=== PATIENT | female | born 2000 | race Caucasian/White ===

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

== ENCOUNTER 2020-10-16 19:17 | Inpatient (IN) ==
[2020-10-16] MEDS ORDERED: SODIUM CHLORIDE 0.9% 1000ML 1,000 ML IV STA (19:46)
[2020-10-16] MEDS ORDERED: ACETAMINOPHEN 1000 MG/100 ML IV IV STA (19:46)
--- NOTE | 2020-10-16 19:57 | Emergency Department Note ---
History of Present Illness General Chief complaint: Fever Stated complaint: FEVER Time Seen by Provider: 10/16/20 19:37 Source: patient Mode of arrival: ambulatory Limitations: no limitations History of Present Illness Provider complaint: fever This 19-year-old female patient presents to the emergency department today via private vehicle for evaluation of fever and chills for the past 2 weeks. Patient does report a history of urinary reflux as a child and states she was on antibiotics for 12 years, but has not had any problems in approximately the past 8 years. The patient states she developed a dark-colored urine yesterday. Patient states T-max has been 102.8F. The patient reports a normal menstrual period last week. She states before the fevers began, she had 2-day history of sore throat and has been experiencing intermittent coughing. She states she has not had Covid testing since the onset of her symptoms. She did receive her second COVID-19 vaccine 2 weeks ago. She reports some mild low back pain. No abdominal pain, nausea, vomiting. She is eating and drinking without difficulty. She states she normally has a bowel movement about 10 times per day, but over the past 2 weeks has not been moving her bowels as frequently. Patient does admit to alcohol and marijuana use "like a normal college student". She denies any chest pain or dyspnea. No hemoptysis. Home Medications Medication Instructions Recorded Confirmed Type acetaminophen [Tylenol] 650 mg PO QID PRN 10/16/20 10/16/20 History ascorbic acid (vitamin C) [Vitamin 500 mg PO QAM 10/16/20 10/16/20 History C] lactobacillus combination no.4 3,000 mmu cells PO QAM 10/16/20 10/16/20 History [Probiotic] Allergies Allergy/AdvReac Type Severity Reaction Status Date / Time No Known Allergies Allergy Unverified 10/16/20 20:05 Past Med/Surg History Medical History Ureteral reflux Social History Smoking Status: Never smoker Tobacco Type: Cigarettes Feels Safe at Home: Yes Review of Systems A total of 10 systems reviewed and were otherwise negative Physical Exam Vital Signs Vital Signs - 24 hr 10/16/20 19:26 10/16/20 19:39 10/16/20 21:08 Temperature 36.9 C 37.9 C H 38.1 C H Temperature Source Skin Oral Oral Pulse Rate 110 H Pulse Rate [Apical] 94 H 82 Respiratory Rate 18 19 20 Blood Pressure 135/86 Blood Pressure [Right Arm] 139/73 133/66 Blood Pressure Mean 102 Blood Pressure Mean [Right Arm] 95 88 Blood Pressure Position Sitting Blood Pressure Position [Right Arm] Lying Pulse Oximetry 97 98 94 Oxygen Delivery Method Room Air Room Air Room Air Sepsis Recent Fever Within 48 Hours No Sepsis New/Unexplained Change in Mental Status N/A Sepsis Action Taken by Nursing No Action Required 10/16/20 22:07 Temperature Temperature Source Pulse Rate Pulse Rate [Apical] 86 Respiratory Rate 20 Blood Pressure Blood Pressure [Right Arm] 133/77 Blood Pressure Mean Blood Pressure Mean [Right Arm] 95 Blood Pressure Position Blood Pressure Position [Right Arm] Pulse Oximetry 98 Oxygen Delivery Method Room Air Sepsis Recent Fever Within 48 Hours Sepsis New/Unexplained Change in Mental Status Sepsis Action Taken by Nursing VITALS: Vitals are noted on the nurse's note and reviewed by myself. Vital signs stable. GENERAL: This is a 19-year-old white female, in no acute distress, nondiaphoretic, well-developed well-nourished. SKIN: The skin was without rashes, erythema, edema, or bruising. There is no tenting of the skin. Capillary refill less than 2 seconds. HEAD: Normocephalic atraumatic. EYES: Conjunctivae without injection, sclerae without icterus. NECK: Supple without nuchal rigidity. No lymphadenopathy. No JVD. HEART: Regular rate and rhythm without murmurs gallops or rubs. LUNGS: Clear to auscultation bilaterally without wheezes, rales or rhonchi. No retractions or accessory muscle use. ABDOMEN: Positive bowel sounds x 4. Soft, nontender, without masses or organomegaly. Garcia sign negative. No guarding or rebound tenderness. TRACKLESS TROLLEY DRIVER - (An RN nurse ocean export coordinator was present throughout the entire TRACKLESS TROLLEY DRIVER procedure.) SPECULUM EXAM: - Water-soluble lubricant was applied to the plastic speculum and inserted into the vagina in a downward fashion towards the location of the cervix. When resistance was met, the speculum was opened to visualize the cervix. The cervical os was closed and without active drainage. No lesions, masses, or purulent discharge noted. A swab of the cervix was taken for a vaginal culture and sensitivity. Gonoccal(GC)/Chlamydia endocervical sample was obtained. All samples were sealed, labeled, and sent away for pathology. The speculum was slowly removed to visualize the vaginal blanchard. No lesions, masses, or excoriations noted. Pt tolerated the procedure well and voiced no discomfort throughout the procedure. BIMANUAL EXAM: - MONS - Tom Stage V. No lesions or growths noted. No palpable inguinal lymph nodes. - VULVA - skin color consistent with surrounding structures. No signs of irritation, edema, lesions, growths, or discharge. No vulvar or clitoral adhes ions. No tenderness to palpation. - PERINEUM -no growths or lesions. Skin intact without breakdown or scars. - BARTHOLIN'S GLANDS/SKENE'S GLANDS - No enlargement or discharge noted. No tenderness with palpation. - URETHRA - No erythema, edema, discharge, or blood noted. - VAGINA - [place] and moist without lesions, vesicles, discharge, or growths noted. - CERVIX - No cervical motion tenderness appreciated. - UTERUS - Palpable and nontender. - ADNEXA - No masses or tenderness noted with palpation. - RECTO-VAGINAL - No fissures, masses, or hemorrhoids visualized on minimal exam. MUSCULOSKELETAL: No muscle atrophy, erythema, or edema noted. Full range of motion without joint tenderness in all extremities. No tenderness to palpation. Normal gait. Strength 5/5 throughout. NEURO: Patient was alert and oriented to person place and time. No focal neurological deficits. Course Course The patient was seen and evaluated as above. An order was placed for continuous cardiac monitoring. The monitor shows a normal sinus rhythm at a rate of 103 bpm initially. IV access obtained, labs drawn. Patient medicated with IV fluids and acetaminophen. X-ray imaging performed and reviewed by myself and radiologist as noted. Labs reviewed by myself. I discussed the findings with the patient at bedside. I discussed the case with the team manager. I discussed the case with Dr. Stiles, [facility] hospitalist physician. He did agree to see and evaluate the patient for inpatient work-up. Pelvic examination completed. Please see hospitalist dictation regarding ongoing management care of this patient. Administered Medications Discontinued Medications Acetaminophen (Acetaminophen 1000 Mg/100 Ml Iv) 1,000 mg IV NOW STA Stop: 10/16/20 19:47 Last Admin: 10/16/20 20:03 Dose: 1,000 mg Documented by: [id number] Sodium Chloride (Nss 1000ml) 1,000 mls @ 999 mls/hr IV .[id number] STA Stop: 10/16/20 20:46 Last Infusion: 10/16/20 20:59 Dose: 0 mls/hr Documented by: [id number] Admin: 10/16/20 20:03 Dose: 999 mls/hr Documented by: [id number] Ceftriaxone Sodium (Rocephin) 1,000 mg in 50 mls @ 100 mls/hr IV NOW STA Stop: 10/16/20 21:12 Last Infusion: 10/16/20 21:23 Dose: 0 mls/hr Documented by: [id number] Admin: 10/16/20 20:48 Dose: 100 mls/hr Documented by: [id number] Ceftriaxone Sodium (Rocephin) 1,000 mg in 50 mls @ 100 mls/hr IV NOW STA Stop: 10/16/20 22:52 Last Admin: 10/16/20 22:50 Dose: 100 mls/hr Documented by: [id number] Medical Decision Making Differential Diagnosis Viral syndrome, otitis, pharyngitis, pneumonia, influenza, meningitis, urinary tract infection, sepsis, bacteremia, as well as other pathologies. Medical Records Attestation: I reviewed the patient's medical records. Home Medications Current Medication List: was personally reviewed by me Laboratory Data Attestation: I reviewed the patient's lab results. Mild leukopenia with a white blood cell count of 3.81. No thrombocytopenia or anemia. Renal function electrolytes without significant abnormality. Transaminases significantly elevated with an AST of 751 and ALT of 660. Alkaline phosphatase 192. Lipase 114. Troponin elevated at 0.143. Procalcitonin 0.34. Urinalysis concerning for infection with positive nitrites. Urine test negative. COVID-19, influenza, RSV testing negative. Lyme disease testing negative. Lactic acid 1.2. [place] screen negative. Result diagrams: 10/16/20 20:08 10/16/20 20:08 Lab Results 10/16/20 10/16/20 10/16/20 Range/Units 19:42 19:42 19:52 WBC (4.8-10.8) K/uL RBC (4.2-5.4) M/uL Hgb (12.0-16.0) g/dL Hct (37-47) % MCV (80-100) fL MCH (25-34) pg MCHC (32-36) g/dL RDW Std Deviation (36.4-46.3) fL RDW Coeff of Virid[place] (11.5-14.5) % Plt Count (130-400) K/uL MPV (7.4-10.4) fL Immature Gran % (Auto) % Neut % (Auto) % Lymph % (Auto) % [place] % (Auto) % Eos % (Auto) % Baso % (Auto) % Neut # (Auto) (1.4-6.5) K/uL Lymph # (Auto) (1.2-3.4) K/uL [place] # (Auto) (0.11-0.59) K/uL Eos # (Auto) (0-0.5) K/uL Baso # (Auto) (0-0.2) K/uL Immature Gran # (Auto) (0.00-0.02) K/uL PT (9.0-12.0) Seconds INR (0.9-1.1) Sodium (136-145) mmol/L Potassium (3.5-5.1) mmol/L Chloride (98-107) mmol/L Carbon Dioxide (21-32) mmol/L Anion Gap (3-11) BUN (7-18) mg/dl Creatinine (0.6-1.2) mg/dl Est Cr Clr Drug Dosing ml/min Est GFR ( Amer) Est GFR (Non-Af Amer) BUN/Creatinine Ratio (10-20) Glucose (70-99) mg/dl Lactate (0.4-2.0) mmol/L Calcium (8.5-10.1) mg/dl Total Bilirubin (0.2-1) mg/dl AST (15-37) U/L ALT (12-78) U/L Alkaline Phosphatase (45-117) U/L Troponin I (0-0.045) ng/ml Total Protein (6.4-8.2) gm/dl Albumin (3.4-5.0) gm/dl Globulin (2.5-4.0) gm/dl Albumin/Globulin Ratio (0.9-2) Lipase (73-393) U/L Procalcitonin (0-0.5) ng/ml Urine Color Dark Yellow Urine Appearance Cloudy A (Clear) Urine pH 6.5 (4.5-7.5) Ur Specific Margaret 1.033 H (1.000-1.030) Urine Protein Trace H (Negative) Urine Glucose (UA) Negative (Negative) Urine Ketones Trace H (Negative) Urine Blood Trace H (Negative) Urine Nitrite Positive A (Negative) Urine Bilirubin 2+ H (Negative) Urine Urobilinogen Negative (Negative) Ur Leukocyte Esterase 1+ H (Negative) Urine WBC (Auto) 5-10 H (0-5) /hpf Urine RBC (Auto) 0-4 (0-4) /hpf U Hyaline Cast (Auto) 0 (0-5) /lpf U Epithel Cells (Auto) >30 H (0-5) /lpf Urine Bacteria (Auto) 2+ H (Negative) Urine Mucus Present A (None Prsent) Urine Yeast Not Reportable Urine Test Negative (Negative) Lyme Disease IgG Ab (Negative) Lyme Disease IgM Ab (Negative) COVID-19 Eval Order CovFluRsv at [facility] SARS-CoV-2 (PCR) (Negative) Monoscreen (Negative) Influenza Type A (PCR) (Neg) Influenza Type B (PCR) (Neg) RSV (RT-PCR) (Neg) 10/16/20 10/16/20 10/16/20 Range/Units 19:52 20:08 20:08 WBC 3.81 L (4.8-10.8) K/uL RBC 4.00 L (4.2-5.4) M/uL Hgb 12.4 (12.0-16.0) g/dL Hct 36.8 L (37-47) % MCV 92.0 (80-100) fL MCH 31.0 (25-34) pg MCHC 33.7 (32-36) g/dL RDW Std Deviation 45.5 (36.4-46.3) fL RDW Coeff of Virid[place] 13.5 (11.5-14.5) % Plt Count 231 (130-400) K/uL MPV 10.0 (7.4-10.4) fL Immature Gran % (Auto) 0.3 % Neut % (Auto) 47.2 % Lymph % (Auto) 39.9 % [place] % (Auto) 9.2 % Eos % (Auto) 0.3 % Baso % (Auto) 3.1 % Neut # (Auto) 1.80 (1.4-6.5) K/uL Lymph # (Auto) 1.52 (1.2-3.4) K/uL [place] # (Auto) 0.35 (0.11-0.59) K/uL Eos # (Auto) 0.01 (0-0.5) K/uL Baso # (Auto) 0.12 (0-0.2) K/uL Immature Gran # (Auto) 0.01 (0.00-0.02) K/uL PT 11.4 (9.0-12.0) Seconds INR 1.1 (0.9-1.1) Sodium (136-145) mmol/L Potassium (3.5-5.1) mmol/L Chloride (98-107) mmol/L Carbon Dioxide (21-32) mmol/L Anion Gap (3-11) BUN (7-18) mg/dl Creatinine (0.6-1.2) mg/dl Est Cr Clr Drug Dosing ml/min Est GFR ( Amer) Est GFR (Non-Af Amer) BUN/Creatinine Ratio (10-20) Glucose (70-99) mg/dl Lactate (0.4-2.0) mmol/L Calcium (8.5-10.1) mg/dl Total Bilirubin (0.2-1) mg/dl AST (15-37) U/L ALT (12-78) U/L Alkaline Phosphatase (45-117) U/L Troponin I (0-0.045) ng/ml Total Protein (6.4-8.2) gm/dl Albumin (3.4-5.0) gm/dl Globulin (2.5-4.0) gm/dl Albumin/Globulin Ratio (0.9-2) Lipase (73-393) U/L Procalcitonin (0-0.5) ng/ml Urine Color Urine Appearance (Clear) Urine pH (4.5-7.5) Ur Specific Margaret (1.000-1.030) Urine Protein (Negative) Urine Glucose (UA) (Negative) Urine Ketones (Negative) Urine Blood (Negative) Urine Nitrite (Negative) Urine Bilirubin (Negative) Urine Urobilinogen (Negative) Ur Leukocyte Esterase (Negative) Urine WBC (Auto) (0-5) /hpf Urine RBC (Auto) (0-4) /hpf U Hyaline Cast (Auto) (0-5) /lpf U Epithel Cells (Auto) (0-5) /lpf Urine Bacteria (Auto) (Negative) Urine Mucus (None Prsent) Urine Yeast Urine Test (Negative) Lyme Disease IgG Ab (Negative) Lyme Disease IgM Ab (Negative) COVID-19 Eval Order SARS-CoV-2 (PCR) NEGATIVE (Negative) Monoscreen (Negative) Influenza Type A (PCR) Negative (Neg) Influenza Type B (PCR) Negative (Neg) RSV (RT-PCR) Negative (Neg) 10/16/20 10/16/20 10/16/20 Range/Units 20:08 20:08 20:08 WBC (4.8-10.8) K/uL RBC (4.2-5.4) M/uL Hgb (12.0-16.0) g/dL Hct (37-47) % MCV (80-100) fL MCH (25-34) pg MCHC (32-36) g/dL RDW Std Deviation (36.4-46.3) fL RDW Coeff of Viridiana (11.5-14.5) % Plt Count (130-400) K/uL MPV (7.4-10.4) fL Immature Gran % (Auto) % Neut % (Auto) % Lymph % (Auto) % [place] % (Auto) % Eos % (Auto) % Baso % (Auto) % Neut # (Auto) (1.4-6.5) K/uL Lymph # (Auto) (1.2-3.4) K/uL [place] # (Auto) (0.11-0.59) K/uL Eos # (Auto) (0-0.5) K/uL Baso # (Auto) (0-0.2) K/uL Immature Gran # (Auto) (0.00-0.02) K/uL PT (9.0-12.0) Seconds INR (0.9-1.1) Sodium 137 (136-145) mmol/L Potassium 3.7 (3.5-5.1) mmol/L Chloride 102 (98-107) mmol/L Carbon Dioxide 28 (21-32) mmol/L Anion Gap 7.0 (3-11) BUN 6 L (7-18) mg/dl Creatinine 0.73 (0.6-1.2) mg/dl Est Cr Clr Drug Dosing 134.3 ml/min Est GFR ( Amer) 136.5 Est GFR (Non-Af Amer) 117.7 BUN/Creatinine Ratio 7.9 L (10-20) Glucose 96 (70-99) mg/dl Lactate 1.2 (0.4-2.0) mmol/L Calcium 9.3 (8.5-10.1) mg/dl Total Bilirubin 1.4 H (0.2-1) mg/dl AST 751 H (15-37) U/L ALT 660 H (12-78) U/L Alkaline Phosphatase 192 H (45-117) U/L Troponin I 0.143 H* (0-0.045) ng/ml Total Protein 7.9 (6.4-8.2) gm/dl Albumin 3.8 (3.4-5.0) gm/dl Globulin 4.1 H (2.5-4.0) gm/dl Albumin/Globulin Ratio 0.9 (0.9-2) Lipase 114 (73-393) U/L Procalcitonin 0.34 (0-0.5) ng/ml Urine Color Urine Appearance (Clear) Urine pH (4.5-7.5) Ur Specific Margaret (1.000-1.030) Urine Protein (Negative) Urine Glucose (UA) (Negative) Urine Ketones (Negative) Urine Blood (Negative) Urine Nitrite (Negative) Urine Bilirubin (Negative) Urine Urobilinogen (Negative) Ur Leukocyte Esterase (Negative) Urine WBC (Auto) (0-5) /hpf Urine RBC (Auto) (0-4) /hpf U Hyaline Cast (Auto) (0-5) /lpf U Epithel Cells (Auto) (0-5) /lpf Urine Bacteria (Auto) (Negative) Urine Mucus (None Prsent) Urine Yeast Urine Test (Negative) Lyme Disease IgG Ab Negative (Negative) Lyme Disease IgM Ab Negative (Negative) COVID-19 Eval Order SARS-CoV-2 (PCR) (Negative) Monoscreen (Negative) Influenza Type A (PCR) (Neg) Influenza Type B (PCR) (Neg) RSV (RT-PCR) (Neg) 10/16/20 Range/Units 20:08 WBC (4.8-10.8) K/uL RBC (4.2-5.4) M/uL Hgb (12.0-16.0) g/dL Hct (37-47) % MCV (80-100) fL MCH (25-34) pg MCHC (32-36) g/dL RDW Std Deviation (36.4-46.3) fL RDW Coeff of Virid[place] (11.5-14.5) % Plt Count (130-400) K/uL MPV (7.4-10.4) fL Immature Gran % (Auto) % Neut % (Auto) % Lymph % (Auto) % [place] % (Auto) % Eos % (Auto) % Baso % (Auto) % Neut # (Auto) (1.4-6.5) K/uL Lymph # (Auto) (1.2-3.4) K/uL [place] # (Auto) (0.11-0.59) K/uL Eos # (Auto) (0-0.5) K/uL Baso # (Auto) (0-0.2) K/uL Immature Gran # (Auto) (0.00-0.02) K/uL PT (9.0-12.0) Seconds INR (0.9-1.1) Sodium (136-145) mmol/L Potassium (3.5-5.1) mmol/L Chloride (98-107) mmol/L Carbon Dioxide (21-32) mmol/L Anion Gap (3-11) BUN (7-18) mg/dl Creatinine (0.6-1.2) mg/dl Est Cr Clr Drug Dosing ml/min Est GFR ( Amer) Est GFR (Non-Af Amer) BUN/Creatinine Ratio (10-20) Glucose (70-99) mg/dl Lactate (0.4-2.0) mmol/L Calcium (8.5-10.1) mg/dl Total Bilirubin (0.2-1) mg/dl AST (15-37) U/L ALT (12-78) U/L Alkaline Phosphatase (45-117) U/L Troponin I (0-0.045) ng/ml Total Protein (6.4-8.2) gm/dl Albumin (3.4-5.0) gm/dl Globulin (2.5-4.0) gm/dl Albumin/Globulin Ratio (0.9-2) Lipase (73-393) U/L Procalcitonin (0-0.5) ng/ml Urine Color Urine Appearance (Clear) Urine pH (4.5-7.5) Ur Specific Margaret (1.000-1.030) Urine Protein (Negative) Urine Glucose (UA) (Negative) Urine Ketones (Negative) Urine Blood (Negative) Urine Nitrite (Negative) Urine Bilirubin (Negative) Urine Urobilinogen (Negative) Ur Leukocyte Esterase (Negative) Urine WBC (Auto) (0-5) /hpf Urine RBC (Auto) (0-4) /hpf U Hyaline Cast (Auto) (0-5) /lpf U Epithel Cells (Auto) (0-5) /lpf Urine Bacteria (Auto) (Negative) Urine Mucus (None Prsent) Urine Yeast Urine Test (Negative) Lyme Disease IgG Ab (Negative) Lyme Disease IgM Ab (Negative) COVID-19 Eval Order SARS-CoV-2 (PCR) (Negative) Monoscreen Negative (Negative) Influenza Type A (PCR) (Neg) Influenza Type B (PCR) (Neg) RSV (RT-PCR) (Neg) Imaging Data Radiologist's Impression: Chest X-Ray 10/16/20 19:46 XR chest 1V portable CLINICAL HISTORY: Fever COMPARISON STUDY: Chest radiograph March 09, 2017. FINDINGS: Lung volumes are normal. Lungs are clear. There is no pneumothorax or pleural effusion. Cardiac size is normal. Mediastinal contours are normal. There is no evidence for pulmonary edema. IMPRESSION: No acute cardiopulmonary findings. ACT 112: Negative or not required by law. Electronically signed by: Lencho Pan M.D. 10/16/2020 8:45 PM ECG Data Attestation: I personally reviewed and interpreted this ECG as follows: Indication: + other (elevated troponin, fever) Rate (beats per minute): 83 Rhythm: + normal sinus ECG [place]: + Normal ECG ST segments: no ST depression, no ST elevation and no T-wave inversions Comparison ECG Date: no prior available MDM Narrative This 19-year-old female patient presents to the emergency department today for evaluation of fever. This is been ongoing intermittently for approximately 2 weeks. Patient states her fever may improve for approximately 6 hours, but it worsens. She has been taking acetaminophen for the fevers. Patient states yesterday she noted her urine to be discolored. In addition to the fevers, the patient has been experiencing intermittent coughing. She did also recently receive her second COVID-19 vaccine. Patient is tolerating p.o. food and fluids. Initial concern was for fever. No pain. Patient was concerned for possible retained condom, but pelvic examination without evidence of retained foreign body. Cultures were obtained. Patient was found to have elevated transaminases as well as an elevated troponin. Work-up here concerning for myocarditis. Unclear etiology, as mono screen negative. There does appear to be a mild leukopenia with a white blood cell count of 3.8. No thrombocytopenia. Patient has not had any chest pain or dyspnea. Chest x-ray negative for pneumonia. COVID-19 testing negative. Patient will be admitted to the [facility] hospitalist service for further evaluation. Please see hospitalist dictation regarding ongoing management care of this patient. The chart was completed utilizing [employer] Speech voice recognition software. Grammatical errors, random word insertions, pronoun errors, and incomplete sentences are an occasional consequence of this system due to software limita tions, ambient noise, and hardware issues. Any formal questions or concerns about the content, text, or information contained within the body of this dictation should be directly addressed to the provider for clarification. Impression & Plan Fever, Myocarditis, Urinary tract infection Discharge Plan Visit Data Chief Complaint: Fever Stated Complaint: FEVER ED Provider: Lucio Lorenzo ED Midlevel Provider: Angella Jane Discharge Problem: Fever, Myocarditis, Urinary tract infection Patient Disposition: Admitted As Inpatient Forms Stand Alone Forms: [facility] Prescriptions Prescriptions: No Action acetaminophen [Tylenol] 325 mg Tablet 650 mg PO QID PRN (Reason: Pain) RF: 0 ascorbic acid (vitamin C) [Vitamin C] 500 mg Tablet 500 mg PO QAM RF: 0 Probiotic 3 billion cell Capsule 3,000 mmu cells PO QAM RF: 0 Referrals Referrals: PCP,NO [Primary Care Provider] -
[2020-10-16 20:25] LABS: Hematocrit (blood only) 36.8 % (37-47); Hemoglobin 12.4 g/dL (12.0-16.0); Mean Corpuscular Hgb Conc 33.7 g/dL (32-36); Platelet Count 231 K/uL (130-400); RDW Coefficient of Variation 13.5 % (11.5-14.5); RDW Standard Deviation 45.5 fL (36.4-46.3); White Blood Count 3.81 K/uL (4.8-10.8)
[2020-10-16 20:28] LABS: Appearance Urine Cloudy (Clear); Bacteria Urine Automated 2+ (Negative); Blood Urine Trace (Negative); Color Urine Dark Yellow; Epithelial Cell Urine Auto >30 /lpf (0-5); Glucose Urine UA Negative (Negative); Ketones Urine Trace (Negative); Leukocyte Esterase Urine 1+ (Negative); Nitrite Urine Positive (Negative); Protein Urine Trace (Negative); Specific Gravity Urine 1.033 (1.000-1.030); Urobilinogen Urine Negative (Negative); pH Urine 6.5 (4.5-7.5)
[2020-10-16 20:31] LABS: Pregnancy Test, Urine Negative (Negative)
[2020-10-16 20:34] LABS: INR 1.1 (0.9-1.1); Prothrombin Time 11.4 Seconds (9.0-12.0)
[2020-10-16 20:40] LABS: Bilirubin Urine 2+ (Negative)
[2020-10-16] MEDS ORDERED: cefTRIAXone SODIUM 1,000 MG/50 ML BAG IV STA ×2 (20:43→22:23)
[2020-10-16 20:45] LABS: Albumin Level 3.8 gm/dl (3.4-5.0); BUN Creatinine Ratio 7.9 (10-20); Calcium 9.3 mg/dl (8.5-10.1); Creatinine Clr Calc Pharmacy 134.3 ml/min; Est GFR (African American) 136.5; Est GFR (Non-African American) 117.7; Potassium 3.7 mmol/L (3.5-5.1)
[2020-10-16 20:46] LABS: Basophils # (auto) 0.12 K/uL (0-0.2); Basophils % (auto) 3.1 %; Eosinophils # (auto) 0.01 K/uL (0-0.5); Eosinophils % (auto) 0.3 %; Immature Granulocytes # (auto) 0.01 K/uL (0.00-0.02); Immature Granulocytes % (auto) 0.3 %; Lymphocytes # (auto) 1.52 K/uL (1.2-3.4); Lymphocytes % (auto) 39.9 %; Monocytes # (auto) 0.35 K/uL (0.11-0.59); Monocytes % (auto) 9.2 %; Neutrophils % (auto) 47.2 %
--- NOTE | 2020-10-16 20:46 | XRay Report ---
XR chest 1V portable CLINICAL HISTORY: Fever COMPARISON STUDY: Chest radiograph March 09, 2017. FINDINGS: Lung volumes are normal. Lungs are clear. There is no pneumothorax or pleural effusion. Car diac size is normal. Mediastinal contours are normal. There is no evidence for pulmonary edema. IMPRESSION: No acute cardiopulmonary findings. ACT 112: Negative or not required by law. Electronically signed by: Lencho Pan M.D. 10/16/2020 8:45 PM
[2020-10-16 20:50] LABS: Cast Urine Automated 0 /lpf (0-5); Mucus Urine Present (None Prsent); RBC Urine Automated 0-4 /hpf (0-4)
[2020-10-16 20:59] LABS: Influenza A virus by PCR Negative (Neg); Influenza B virus by PCR Negative (Neg); RSV by PCR Negative (Neg); SARS CoV2 RNA(COVID-19) InHosp NEGATIVE (Negative)
[2020-10-16 21:07] LABS: Procalcitonin 0.34 ng/ml (0-0.5)
[2020-10-16 21:10] LABS: Albumin Globulin Ratio 0.9 (0.9-2); Bilirubin,Total 1.4 mg/dl (0.2-1); Globulin 4.1 gm/dl (2.5-4.0); Total Protein 7.9 gm/dl (6.4-8.2); Troponin I 0.143 ng/ml (0-0.045)
[2020-10-16 21:13] LABS: Lyme Ab IgG w/WB Rflx Negative (Negative); Lyme Ab IgM w/WB Rflx Negative (Negative)
[2020-10-16] MEDS ORDERED: VANCOMYCIN CONSULT ACTIVE PRN (22:24)
[2020-10-16] MEDS ORDERED: VANCOMYCIN HCL 1,500 MG in SODIUM CHLORIDE 0.9% 500 ML IV ONE (22:24)
--- NOTE | 2020-10-16 22:45 | History & Physical Report ---
Date of Service October 16, 2020 Assessment & Plan Admission and Anticipated Discharge Date Admission Date: 19 yo F w/ pMHx. of ureteral reflux on antibiotics until age 10 with recent concern for retained part of a condom and fever for 2 weeks found to have elevated liver enzymes, troponin and concerning UA without other lab findings consistent with a bacterial infection concern for viral myopericarditis vs. bacterial endocarditis with seeding from urinary tract or foreign body in tract prolonged fever concerning for myopericarditis vs. infection and less likely malaria - admit to med/tele ?Al-pericarditis with elevated troponin in a young patient who had a viral prodrome recently and elevated liver enzymes - trend troponin - consulted cardiology - CT chest - ECHO - Coxsackie B and cmv ordered - started ASA 325 bid and Colchicine - checking sed rate, MARYBEL, RF - ordered UDS Concern for retained products without finding on pelvic done in ER - on Ceftriaxone and Vancomycin - CT A/P ordered; if concerning findings consider adding Flagyl - G/C ordered, f/u results UA with dark urine, WBC, bacteria along with fever with no UTI symptoms or white count - on Ceftriaxone and Vancomycin - ordered anti-streptolysin O - f/u urine culture - follow cr. - NSS 125ml/h 2 bags International travel, one [place] prior [place], not on malaria prophylaxis - peripheral smear ordered elevated liver enzymes potentially due to a viral process vs. Acetaminophen toxicity - ordered a acetaminophen level Blood in stool HGB 12.4 - continue outpatient GI evaluation Code: full diet: NPO overnight DVT: SCD's History of Present Illness Chief Complaint: fever Primary Care Provider: NO PCP Alda Canales is a 19 yo female who was previously healthy and developed a fever for 2 weeks. She felt well otherwise but more recently she developed nausea and one episode of vomiting. The fevers would improve during the day when she was taking Tylenol but would worsen overnight while she was not taking Tylenol. She did go to an Urgent care 2 weeks prior with concern for a retained part of a condom, nothing was seen on exam and they instructed her to go to the hospital if she had any signs of infection. She had been putting this off. 1.5 weeks ago she noted that she had developed a sore throat, congestion and a cough. She has a history of urinary reflux and several UTI's in the past and was on antibiotics until the age of 10. She has not had any UTI's since then. She does not have any dysuria or polyuria but does have some dark tea colored urine that developed today. Last spring she went to [place] ([place] and [place]) and [place] ([facility] and [place]); she was doing "tourist" things and did not use malaria prophylaxis because she was not going to high risk locations. She was not sick during her time abroad. The patient has also noted blood in her stool over the last 2 months. She has on average 10 bowel movements a day and has noted that she had blood in her stool that was in the process of being worked up with GI with a planned colonoscopy on November 13. She denies any neck stiffness but does note a lymph node on her left side. Social history: - She just graduated from [employer] and planned to move back to [place] on Friday. - vaping and marijuana occasionally - cocaine use X2 in July - sexually active with men 4-5 over the last 6 months consistent condom use, not on control - regular periods LMP October 06 Allergies Allergy/AdvReac Type Severity Reaction Status Date / Time No Known Allergies Allergy Unverified 10/16/20 20:05 Home Medications Medication Instructions Recorded Confirmed Type Probiotic 3,000 mmu cells PO QAM 10/16/20 10/16/20 History acetaminophen [Tylenol] 650 mg PO QID PRN 10/16/20 10/16/20 History ascorbic acid (vitamin C) [Vitamin 500 mg PO QAM 10/16/20 10/16/20 History C] Past Med/Surg History Medical History Ureteral reflux Social History Smoking Status: Never smoker Tobacco Type: Cigarettes Second Hand Exposure: No; Hx Alcohol Use: Yes Alcohol type: beer, wine and hard liquor Hx Substance Use: Yes Last Used Substance: Days (ago) Preferred Language: Azeri Communication Ability: Effective File Keeper Required: No Beliefs That Will Affect Care: None Current Living Situation: Other Current Living Situation Comment: [place] Feels Safe at Home: Yes Assistive Devices: None Review of Systems Review of Systems: Constitutional: denies weight change admits fevers, chills, nausea, vomiting, fatigue, diaphoresis, night sweats Head: denies trauma, LOC, headaches, confusion, lightheadedness, vision changes Neurologic: admits pre-sycnope ENT: admits rhinorrhea, stuffiness and sore throat that started one week ago Cardiac: denies chest pain, palpitations, leg swelling, MAZARIEGOS, PND Pulm: admits a cough GI: admits chronic diarrhea that has improved and blood in stool Physical Exam Constitutional: well developed and well nourished; no acute distress Eyes: PERRL, conjunctivae normal, anicteric sclerae ENMT: external ear and nose normal, oropharynx normal Neck: negative Brudzinski's sign and negative Kernig's sign no significant LAD appreciated in the anterior or posterior cervical chain Respiratory: normal respiratory effort, lungs clear to auscultation Cardiovascular: RRR, no murmur, no edema Gastrointestinal (Abdomen): normal bowel sounds, soft, nontender, no hepatosplenomegaly Skin: no rashes, warm and dry Neurologic: no focal motor deficits Psychiatric: A+Ox3, euthymic affect Results & Data Results & Data ([facility]) Vital Signs (Past 12 Hours) Vital Signs Temp Pulse Pulse Resp BP BP Pulse Ox 10/16/20 22:07 86 20 133/77 98 10/16/20 21:08 38.1 C H 82 20 133/66 94 10/16/20 19:39 37.9 C H 94 H 19 139/73 98 10/16/20 19:26 36.9 C 110 H 18 135/86 97 CBC Results Results Complete Blood Count Results: RBC 3.94 M/uL (4.2-5.4) L 10/18/20 WBC 5.89 K/uL (4.8-10.8) 10/18/20 Hgb 12.1 g/dL (12.0-16.0) 10/18/20 Hct 35.5 % (37-47) L 10/18/20 Plt Count 230 K/uL (130-400) 10/18/20 Chemistry (BMP) Results BMP Results: Sodium 137 mmol/L (136-145) 10/18/20 Potassium 3.8 mmol/L (3.5-5.1) 10/18/20 Chloride 106 mmol/L (98-107) 10/18/20 BUN 3 mg/dl (7-18) L 10/18/20 Creatinine 0.53 mg/dl (0.6-1.2) L 10/18/20 Glucose 89 mg/dl (70-99) 10/18/20 Code Status & VTE Plan VTE Prophylaxis Plan VTE Prophylaxis will be ordered: Yes Supervising Physician Co-Signing Physician Notes Attending addendum: I have physically seen this patient, have supervised the medical residents activities, and agree with the H&P unless as otherwise noted. Assessment and Plan: Elevated troponin/abnormal LFTs- Patient with temperature 100.6 F, with previous illness, suggestive of myopericarditis. The patient will be admitted to telemetry for serial cardiac enzymes, serial EKG's, cardiac rhythm monitoring and a 2-D echocardiogram with Dopplers. Placed on aspirin 325 mg p.o. twice daily and colchicine 0.6 mg p.o. twice daily Full work-up including the following labs: Monospot, EBV, CMV, coxsackie B virus, acute hepatitis profile sed rate, MARYBEL, rheumatoid factor, uric acid and urine drug screen Vancomycin IV and ceftriaxone IV for empiric SBE coverage Consult cardiology Remaining orders and notations as noted Resident Activity Tracking Resident Involvement: Resident Care Provided Care Provided: Adult Hospital Medicine
[2020-10-17 01:06] LABS: Amphetamines+Metham, Urine Neg (Neg); Barbiturates, Urine Neg (Neg); Benzodiazepine, Urine Neg (Neg); Cocaine, Urine Neg (Neg); MDMA (Ecstacy), Urine Neg (Neg); Methadone, Urine Neg (Neg); Opiate, Urine Neg (Neg); Phencyclidine, Urine Neg (Neg)
[2020-10-17] MEDS ORDERED: POLYETHYLENE (MIRALAX) 17 GM PACK PO PRN (02:04)
[2020-10-17] MEDS: SODIUM CHLORIDE 0.9% 1000ML 1,000 ML IV SCH ×2 (02:12→10:23)
[2020-10-17] MEDS: COLCHICINE 0.6 MG TAB PO SCH ×2 (02:41→09:37)
[2020-10-17] MEDS: ASPIRIN 325 MG ECTAB PO SCH ×2 (02:41→09:37)
[2020-10-17 02:51] LABS: Albumin Level 3.4 gm/dl (3.4-5.0); Bilirubin Direct 0.8 mg/dl (0-0.2); Bilirubin,Total 1.3 mg/dl (0.2-1); Total Protein 7.2 gm/dl (6.4-8.2)
[2020-10-17] MEDS: ACETAMINOPHEN 325 MG TAB PO PRN ×2 (03:16→19:38)
[2020-10-17] MEDS ORDERED: KETOROLAC TROMETHAMINE 15 MG/ML VIAL IV STA (04:27)
[2020-10-17 06:34] LABS: Hematocrit (blood only) 33.6 % (37-47); Hemoglobin 11.4 g/dL (12.0-16.0); Mean Corpuscular Hemoglobin 30.6 pg (25-34); Mean Corpuscular Hgb Conc 33.9 g/dL (32-36); Mean Corpuscular Volume 90.3 fL (80-100); Mean Platelet Volume 10.5 fL (7.4-10.4); Platelet Count 204 K/uL (130-400); RDW Coefficient of Variation 13.7 % (11.5-14.5); RDW Standard Deviation 45.5 fL (36.4-46.3); Red Blood Count 3.72 M/uL (4.2-5.4); White Blood Count 3.79 K/uL (4.8-10.8)
[2020-10-17 07:03] LABS: Alanine Aminotransferase 504 U/L (12-78); Albumin Level 3.2 gm/dl (3.4-5.0); Aspartate Aminotransferase 437 U/L (15-37); BUN Creatinine Ratio 8.2 (10-20); Blood Urea Nitrogen 5 mg/dl (7-18); Calcium 8.2 mg/dl (8.5-10.1); Carbon Dioxide 23 mmol/L (21-32); Chloride 107 mmol/L (98-107); Creatinine Clr Calc Pharmacy 178.4 ml/min; Est GFR (African American) > 150.0; Est GFR (Non-African American) 134.1; Glucose 100 mg/dl (70-99); Potassium 3.4 mmol/L (3.5-5.1); Sodium 137 mmol/L (136-145)
[2020-10-17 07:14] LABS: Albumin Globulin Ratio 0.9 (0.9-2); Alkaline Phosphatase 168 U/L (45-117); Bilirubin,Total 1.6 mg/dl (0.2-1); Globulin 3.4 gm/dl (2.5-4.0); Total Protein 6.6 gm/dl (6.4-8.2)
--- NOTE | 2020-10-17 07:19 | CT Scan Report ---
CT SCAN OF THE ABDOMEN AND PELVIS WITHOUT CONTRAST CLINICAL HISTORY: Fever. POSSIBLE FOREIGN BODY. COMPARISON STUDY: No previous studies for comparison. TECHNIQUE: CT scan of the abdomen and pelvis was performed from the lung bases to the proximal femurs . Images are reviewed in the axial, sagittal, and coronal planes. IV contrast was not administered fo r this examination. A dose lowering technique was utilized adhering to the principles of ALARA. CT DOSE: FINDINGS: Lower chest: The heart is normal in size and configuration, without pericardial effusion. The lung ba ses and pleural spaces are clear. Liver: The unenhanced liver is normal in size, contour, and attenuation. There is no intrahepatic job iary ductal dilatation. Gallbladder: Unremarkable. Spleen: Normal in size and attenuation. Pancreas: Unremarkable. Adrenal glands: Unremarkable. Kidneys: There is an equivocal punctate left renal calculus. There is no hydronephrosis. Bowel: There are no transition zones to indicate bowel obstruction. There is no evidence of acute div erticulitis. There are no findings to indicate acute appendicitis. Peritoneum: There is trace free pelvic fluid, likely physiologic Vasculature: The abdominal aorta is normal in course and caliber. Adenopathy: None. Pelvic viscera: The bladder, and pelvic viscera are unremarkable. No radiopaque foreign bodies are vi sualized. Skeletal structures: No destructive osseous lesions are seen. IMPRESSION: 1. No evidence of bowel obstruction. No evidence of free air 2. No evidence of acute appendicitis. No evidence of acute diverticulitis 3. Equivocal punctate left renal calculus. ACT 112: Negative or not required by law. Electronically signed by: Davi Koo M.D. 10/17/2020 7:18 AM
[2020-10-17 07:20] LABS: ALC (manual) 1.61 K/uL (1.2-3.4); ANC (manual) 1.81 K/uL (1.4-6.5); Eosinophils # (manual) 0.03 K/uL (0-0.5); Eosinophils % (manual) 0.9 %; Lymphocytes # (manual) 1.19 K/uL (1.2-3.4); Lymphocytes % (manual) 31.3 %; Monocytes # (manual) 0.33 K/uL (0.11-0.59); Monocytes % (manual) 8.7 %; Neutrophils # (manual) 1.81 K/uL (1.4-6.5); Neutrophils % (manual) 47.8 %; Reactive Lymphocytes # (manual) 0.43 K/uL; Reactive Lymphocytes % (manual) 11.3 %
--- NOTE | 2020-10-17 07:21 | CT Scan Report ---
CT chest diagnostic wo con CLINICAL HISTORY: Fever, pericardial effusion. COMPARISON STUDY: No previous studies for comparison. CT DOSE: 599.25 mGy.cm TECHNIQUE: CT of the thorax was performed from the thoracic inlet to the lung bases. Images are revi ewed in the axial, sagittal, and coronal planes. IV contrast was not administered for this examinatio n. A dose lowering technique was utilized adhering to the principles of ALARA. FINDINGS: Thyroid: Imaged portions of the thyroid gland are normal in appearance. Thoracic aorta: The thoracic aorta is normal in course and caliber, noting standard 3 vessel arch helio hari. Heart: The heart is normal in size and configuration, without pericardial effusion. Lungs and pleural spaces: There are no pleural effusions. There is no focal pulmonary consolidation. Mediastinum: There is no evidence of pathologic mediastinal lymphadenopathy Lillian: There is no evidence of pathologic hilar adenopathy given the limitations of noncontrast study. Axilla: Axial lymph nodes are the upper limits of normal in size. Upper abdomen: Partially visualized upper abdominal viscera is within normal limits. Skeletal structures: There are no lytic or blastic osseous lesions. IMPRESSION: 1. No acute intrathoracic findings 2. No evidence of focal pulmonary consolidation 3. No evidence pericardial effusion. ACT 112: Negative or not required by law. Electronically signed by: Davi Koo M.D. 10/17/2020 7:20 AM
[2020-10-17 07:47] LABS: Anti Streptolysin O Screen Positive IU/ml (<200 IU/ml)
[2020-10-17] MEDS ORDERED: VANCOMYCIN HCL 1,500 MG in SODIUM CHLORIDE 0.9% 500 ML IV SCH (09:00)
--- NOTE | 2020-10-17 09:19 | XCELERA ---
[id number]
--- NOTE | 2020-10-17 09:22 | Pharmacy Report ---
Pharmacy Abx Dose Short Note - Date of Service October 17, 2020 - Assessment & Plan Assessment 19 year old F with a remote PMHx of ureteral reflux presenting with prolonged fevers, elevated troponins and LFTs receiving vancomycin for treatment of bacterial endocarditis 2/2 seeding from urine vs. foreign body in tract vs. viral myopericarditis. Pt received vanc 1500mg (~19mg/kg) IV X 1 10/16 ~ 2330. Plan Vancomycin Patient meets criteria for vancomycin AUC dosing nomogram. AUC/KETAN is the preferred PK/PD target for vancomycin * Target AUC/KETAN = 400-600 * AUC guided dosing is effective and associated with decreased risk of neph rotoxicity * Begin vancomycin 1500mg IV q8h * Trough level ordered for: 10/18 prior to the AM dose to evaluate regimen Pharmacy will continue to follow and will adjust dose/frequency as necessary. Thank you.
--- NOTE | 2020-10-17 12:50 | Ultrasound Report ---
US liver CLINICAL HISTORY: Elevated LFT's hyperbilirubinemia COMPARISON STUDY: CT of the abdomen and pelvis October 16, 2020. FINDINGS: Liver morphology is normal. No hepatic lesions are identified. There is no biliary ductal d ilatation. Common bile duct measures 4 mm in caliber. Note is made of a 1.1 cm gallstone within the gallbladder. There is no gallbladder wall thickening. No sonographic Garcia sign was reported. There is no perich olecystic fluid. The pancreas is obscured by overlying bowel gas. There is no right hydronephrosis. IMPRESSION: 1. Cholelithiasis. No evidence for acute cholecystitis. 2. No biliary ductal dilatation. 3. Obscured pancreas. ACT 112: Negative or not required by law. Electronically signed by: Lencho Pan M.D. 10/17/2020 12:48 PM
[2020-10-17 13:11] LABS: Hepatitis B Surf Ag Rflx Conf Neg (Neg)
[2020-10-17 13:39] LABS: Hepatitis C IgG 13Yrs+Old_Rflx Neg (Neg)
--- NOTE | 2020-10-17 15:55 | Cardiology Consultation ---
Date of Consultation October 17, 2020 Assessment & Plan (1) Elevated troponin: (2) Fever: (3) Elevated transaminase level: ASSESSMENT/PLAN: 1. Elevated troponin: Troponin minimally elevated. Not diagnostic of myocardial infarction. She did not present with acute coronary syndrome. Etiol ogy may be due to demand from underlying febrile illness. Cannot exclude very mild myocarditis. Asymptomatic from a cardiac perspective and clinically euvolemic. Normal LV systolic function on echo without structural abnormalities. Continue to evaluate for cause of her febrile illness. No symptoms suggestive of pericarditis and therefore, colchicine and high-dose aspirin can be discontinued from a cardiology perspective. 2. Fever: As per primary service. Cultures are pending. Urinalysis suggests UTI. If blood cultures become positive with an organism suspicious for endocarditis, please call. There is no evidence of vegetation on transthoracic echo and no significant valvular regurgitation. 3. Elevated transaminase levels: Evaluation as per primary service. 4. Disposition: Please call with any other questions or concerns. Patient care communicated with primary hospitalist service, Dr. Vega. Thank you for allowing me to participate in the care of your patient. Please call for any other questions or concerns. Sincerely, Seferino Hemphill M.D. History of Present Illness Reason for Consultation: Concern for myopericarditis Requesting Physician: Dr. Andino Attending Physician: Zack Vega DO History of Present Illness Ms. Canales is a very pleasant 19-year-old female with a history significant for ureteral reflux who was admitted on 10/17/2020 with febrile illness. She states that for the past 2 weeks or so she has been having recurrent fever. Tylenol will suppress the fever but it returns in between doses. Her highest temperature recorded during this hospitalization was early this morning when she had a temperature of 38.6 C. She denies nausea, vomiting, diarrhea, chest pain, shortness of breath, orthopnea, palpitations, syncope, or near-syncope. She recalls having a sore throat 1-2 weeks ago which has since resolved. She also has had a sporadic, nonproductive cough. She does not recall any recent ill contacts. She had dysuria the past day or so but this has since resolved. On presentation, she was noted to have elevated transaminase levels and elevated troponin of 0.143. Her ALT was 660 and has since trended downward. Her AST was 751 and improved to 437., as was her C reactive protein. She has been placed on ceftriaxone and vancomycin and also received IV fluids. Her mother participated in today's conversation via speaker phone. She brought up rectal bleeding. For the past 2 or 3 months, she has noted hematochezia with bowel movements. She was seen by GI in August of 2020 while home in [place]. A colonoscopy is pending next month. She denies any painful bowel movements. She was diagnosed with ureteral reflux and was on chronic antibiotics for approximately 8 years in the past. Review of systems: As above. Review of systems otherwise negative/unremarkable. Family history: No known premature CAD. Social history: She denies tobacco abuse. Occasional alcohol. Rare marijuana. She lives in [place]. She graduated from [employer] on 10/15/2020, majoring in psychology and criminology. She plans on going to [employer] school in the future. She was alone in her hospital room but her mother participated via speaker phone. Allergies Allergy/AdvReac Type Severity Reaction Status Date / Time No Known Allergies Allergy Unverified 10/16/20 20:05 Home Medications Medication Instructions Recorded Confirmed Type acetaminophen [Tylenol] 650 mg PO QID PRN 10/16/20 10/16/20 History ascorbic acid (vitamin C) [Vitamin 500 mg PO QAM 10/16/20 10/16/20 History C] lactobacillus combination no.4 3,000 mmu cells PO QAM 10/16/20 10/16/20 History [Probiotic] Patient History Medical History Ureteral reflux Social History Smoking Status: Never smoker Tobacco Type: Cigarettes Second Hand Exposure: No; Do You Dip or Chew Tobacco: No; Hx Alcohol Use: Yes Alcohol type: beer, wine and hard liquor Hx Substance Use: Yes Last Used Substance: Days (ago) Preferred Language: Icelandic Communication Ability: Effective [employer] Required: No Beliefs That Will Affect Care: None Current Living Situation: Other Current Living Situation Comment: Sorority Other Information That Helps Us Care for You: No Feels Safe at Home: Yes Safety Concerns: Feels Safe At This Time Assistive Devices: Glasses Physical Exam Physical Exam: Gen.: No acute distress. Alert and oriented. HEENT: Anicteric sclera. Neck: No JVD. No bruits. Normal carotid upstrokes bilaterally. Cardiac: PMI was nondisplaced. No ventricular heave. Regular. Normal S1-S2. No murmurs, rubs, or gallops. Pulmonary: Clear to auscultation bilaterally without wheezes, rales, or rhonchi. Abdomen: Soft, nontender, nondistended, with normoactive bowel sounds. No bruits noted. Extremities: 2+ radial pulses bilaterally. 2+ posterior tibialis pulses bilaterally. No edema or cyanosis. No Osler's nodes or [place] lesions. Could not evaluate for splinter hemorrhages due to painted nails. Psychiatric: Affect appears appropriate. Results & Data ([facility]) Vital Signs (Past 12 Hours) Vital Signs Temp Pulse Pulse Resp BP BP Pulse Ox 10/17/20 15:05 36.7 C 75 20 121/76 97 10/17/20 11:15 37.0 C 69 20 119/68 98 10/17/20 07:34 37.0 C 50 L 18 112/74 97 10/17/20 06:10 37.1 C 10/17/20 05:20 38.3 C H 10/17/20 04:17 81 10/17/20 04:13 38.6 C H 91 H 18 113/76 97 Laboratory Results Laboratory Results - last 24 hr 10/16/20 10/16/20 10/16/20 19:42 19:42 19:42 WBC RBC Hgb Hct MCV MCH MCHC RDW Std Deviation RDW Coeff of Viridiana Plt Count MPV Immature Gran % (Auto) Neut % (Auto) Lymph % (Auto) [place] % (Auto) Eos % (Auto) Baso % (Auto) Neut # (Auto) Lymph # (Auto) [place] # (Auto) Eos # (Auto) Baso # (Auto) Immature Gran # (Auto) Neutrophils % (Manual) Lymphocytes % (Manual) Reactive Lymphs % (Man) Monocytes % (Manual) Eosinophils % (Manual) Neutrophils # (Manual) Total Absolute Neuts Lymphocytes # (Manual) Reactive Lymphs # Total Abs Lymphocytes Monocytes # (Manual) Eosinophils # (Manual) Peripher Smr Path Cons ESR PT INR Sodium Potassium Chloride Carbon Dioxide Anion Gap BUN Creatinine Est Cr Clr Drug Dosing Est GFR ( Amer) Est GFR (Non-Af Amer) BUN/Creatinine Ratio Glucose Lactate Calcium Total Bilirubin Direct Bilirubin AST ALT Alkaline Phosphatase Total Creatine Kinase Troponin I C-Reactive Protein Total Protein Albumin Globulin Albumin/Globulin Ratio Lipase Procalcitonin Urine Color Dark Yellow Urine Appearance Cloudy A Urine pH 6.5 Ur Specific [place] 1.033 H Urine Protein Trace H Urine Glucose (UA) Negative Urine Ketones Trace H Urine Blood Trace H Urine Nitrite Positive A Urine Bilirubin 2+ H Urine Urobilinogen Negative Ur Leukocyte Esterase 1+ H Urine WBC (Auto) 5-10 H Urine RBC (Auto) 0-4 U Hyaline Cast (Auto) 0 U Epithel Cells (Auto) >30 H Urine Bacteria (Auto) 2+ H Urine Mucus Present A Urine Yeast Not Reportable Urine Test Negative POC Ur Test Urine Opiates Screen Neg Ur Methadone, Qual Neg Acetaminophen Urine Barbiturates Neg Ur Phencyclidine (PCP) Neg U Amphetamin/Meth Scrn Neg MDMA (Ecstasy) Screen Neg U Benzodiazepines Scrn Neg Ur Cocaine Metabolite Neg U Marijuana (THC) Screen Pos H U Marijuana THC Carboxy Rheumatoid Factor MARYBEL Screen Anaplasma Smear Lyme Disease IgG Ab Lyme Disease IgM Ab COVID-19 Eval Order SARS-CoV-2 (PCR) [place] Type B(1) Ab [place] Type B(2) Ab [place] Type B(3) Ab [place] Type B(4) Ab [place] Type B(5) Ab [place] Type B(6) Ab CMV IgM Ab CMV IgG Ab/TORCH Hepatitis A Ab Total Hep Bs Antigen Hep B Core IgM Ab Hepatitis C Antibody Monoscreen HIV 1&2 Ab/P24 Ag 4thGn Influenza Type A (PCR) Influenza Type B (PCR) RSV (RT-PCR) Anti-Streptolysin Scrn Anti-Streptolysin Titr 10/16/20 10/16/20 10/16/20 19:42 19:43 19:52 WBC RBC Hgb Hct MCV MCH MCHC RDW Std Deviation RDW Coeff of Viridiana Plt Count MPV Immature Gran % (Auto) Neut % (Auto) Lymph % (Auto) [place] % (Auto) Eos % (Auto) Baso % (Auto) Neut # (Auto) Lymph # (Auto) [place] # (Auto) Eos # (Auto) Baso # (Auto) Immature Gran # (Auto) Neutrophils % (Manual) Lymphocytes % (Manual) Reactive Lymphs % (Man) Monocytes % (Manual) Eosinophils % (Manual) Neutrophils # (Manual) Total Absolute Neuts Lymphocytes # (Manual) Reactive Lymphs # Total Abs Lymphocytes Monocytes # (Manual) Eosinophils # (Manual) Peripher Smr Path Cons ESR PT INR Sodium Potassium Chloride Carbon Dioxide Anion Gap BUN Creatinine Est Cr Clr Drug Dosing Est GFR ( Amer) Est GFR (Non-Af Amer) BUN/Creatinine Ratio Glucose Lactate Calcium Total Bilirubin Direct Bilirubin AST ALT Alkaline Phosphatase Total Creatine Kinase Troponin I C-Reactive Protein Total Protein Albumin Globulin Albumin/Globulin Ratio Lipase Procalcitonin Urine Color Urine Appearance Urine pH Ur Specific [place] Urine Protein Urine Glucose (UA) Urine Ketones Urine Blood Urine Nitrite Urine Bilirubin Urine Urobilinogen Ur Leukocyte Esterase Urine WBC (Auto) Urine RBC (Auto) U Hyaline Cast (Auto) U Epithel Cells (Auto) Urine Bacteria (Auto) Urine Mucus Urine Yeast Urine Test POC Ur Test Cancelled Urine Opiates Screen Ur Methadone, Qual Acetaminophen Urine Barbiturates Ur Phencyclidine (PCP) U Amphetamin/Meth Scrn MDMA (Ecstasy) Screen U Benzodiazepines Scrn Ur Cocaine Metabolite U Marijuana (THC) Screen U Marijuana THC Carboxy Pending Rheumatoid Factor MARYBEL Screen Anaplasma Smear Lyme Disease IgG Ab Lyme Disease IgM Ab COVID-19 Eval Order [facility] at [facility] SARS-CoV-2 (PCR) [place] Type B(1) Ab [place] Type B(2) Ab [place] Type B(3) Ab [place] Type B(4) Ab [place] Type B(5) Ab [place] Type B(6) Ab CMV IgM Ab CMV IgG Ab/TORCH Hepatitis A Ab Total Hep Bs Antigen Hep B Core IgM Ab Hepatitis C Antibody Monoscreen HIV 1&2 Ab/P24 Ag 4thGn Influenza Type A (PCR) Influenza Type B (PCR) RSV (RT-PCR) Anti-Streptolysin Scrn Anti-Streptolysin Titr 10/16/20 10/16/20 10/16/20 19:52 20:08 20:08 WBC 3.81 L RBC 4.00 L Hgb 12.4 Hct 36.8 L MCV 92.0 MCH 31.0 MCHC 33.7 RDW Std Deviation 45.5 RDW Coeff of Viridiana 13.5 Plt Count 231 MPV 10.0 Immature Gran % (Auto) 0.3 Neut % (Auto) 47.2 Lymph % (Auto) 39.9 [place] % (Auto) 9.2 Eos % (Auto) 0.3 Baso % (Auto) 3.1 Neut # (Auto) 1.80 Lymph # (Auto) 1.52 [place] # (Auto) 0.35 Eos # (Auto) 0.01 Baso # (Auto) 0.12 Immature Gran # (Auto) 0.01 Neutrophils % (Manual) Lymphocytes % (Manual) Reactive Lymphs % (Man) Monocytes % (Manual) Eosinophils % (Manual) Neutrophils # (Manual) Total Absolute Neuts Lymphocytes # (Manual) Reactive Lymphs # Total Abs Lymphocytes Monocytes # (Manual) Eosinophils # (Manual) Peripher Smr Path Cons ESR PT 11.4 INR 1.1 Sodium Potassium Chloride Carbon Dioxide Anion Gap BUN Creatinine Est Cr Clr Drug Dosing Est GFR ( Amer) Est GFR (Non-Af Amer) BUN/Creatinine Ratio Glucose Lactate Calcium Total Bilirubin Direct Bilirubin AST ALT Alkaline Phosphatase Total Creatine Kinase Troponin I C-Reactive Protein Total Protein Albumin Globulin Albumin/Globulin Ratio Lipase Procalcitonin Urine Color Urine Appearance Urine pH Ur Specific [place] Urine Protein Urine Glucose (UA) Urine Ketones Urine Blood Urine Nitrite Urine Bilirubin Urine Urobilinogen Ur Leukocyte Esterase Urine WBC (Auto) Urine RBC (Auto) U Hyaline Cast (Auto) U Epithel Cells (Auto) Urine Bacteria (Auto) Urine Mucus Urine Yeast Urine Test POC Ur Test Urine Opiates Screen Ur Methadone, Qual Acetaminophen Urine Barbiturates Ur Phencyclidine (PCP) U Amphetamin/Meth Scrn MDMA (Ecstasy) Screen U Benzodiazepines Scrn Ur Cocaine Metabolite U Marijuana (THC) Screen U Marijuana THC Carboxy Rheumatoid Factor MARYBEL Screen Anaplasma Smear Lyme Disease IgG Ab Lyme Disease IgM Ab COVID-19 Eval Order SARS-CoV-2 (PCR) NEGATIVE [place] Type B(1) Ab [place] Type B(2) Ab [place] Type B(3) Ab [place] Type B(4) Ab [place] Type B(5) Ab [place] Type B(6) Ab CMV IgM Ab CMV IgG Ab/TORCH Hepatitis A Ab Total Hep Bs Antigen Hep B Core IgM Ab Hepatitis C Antibody Monoscreen HIV 1&2 Ab/P24 Ag 4thGn Influenza Type A (PCR) Negative Influenza Type B (PCR) Negative RSV (RT-PCR) Negative Anti-Streptolysin Scrn Anti-Streptolysin Titr 10/16/20 10/16/20 10/16/20 20:08 20:08 20:08 WBC RBC Hgb Hct MCV MCH MCHC RDW Std Deviation RDW Coeff of Viridiana Plt Count MPV Immature Gran % (Auto) Neut % (Auto) Lymph % (Auto) [place] % (Auto) Eos % (Auto) Baso % (Auto) Neut # (Auto) Lymph # (Auto) [place] # (Auto) Eos # (Auto) Baso # (Auto) Immature Gran # (Auto) Neutrophils % (Manual) Lymphocytes % (Manual) Reactive Lymphs % (Man) Monocytes % (Manual) Eosinophils % (Manual) Neutrophils # (Manual) Total Absolute Neuts Lymphocytes # (Manual) Reactive Lymphs # Total Abs Lymphocytes Monocytes # (Manual) Eosinophils # (Manual) Peripher Smr Path Cons ESR PT INR Sodium 137 Potassium 3.7 Chloride 102 Carbon Dioxide 28 Anion Gap 7.0 BUN 6 L Creatinine 0.73 Est Cr Clr Drug Dosing 134.3 Est GFR ( Amer) 136.5 Est GFR (Non-Af Amer) 117.7 BUN/Creatinine Ratio 7.9 L Glucose 96 Lactate 1.2 Calcium 9.3 Total Bilirubin 1.4 H Direct Bilirubin AST 751 H ALT 660 H Alkaline Phosphatase 192 H Total Creatine Kinase Troponin I 0.143 H* C-Reactive Protein Total Protein 7.9 Albumin 3.8 Globulin 4.1 H Albumin/Globulin Ratio 0.9 Lipase 114 Procalcitonin 0.34 Urine Color Urine Appearance Urine pH Ur Specific [place] Urine Protein Urine Glucose (UA) Urine Ketones Urine Blood Urine Nitrite Urine Bilirubin Urine Urobilinogen Ur Leukocyte Esterase Urine WBC (Auto) Urine RBC (Auto) U Hyaline Cast (Auto) U Epithel Cells (Auto) Urine Bacteria (Auto) Urine Mucus Urine Yeast Urine Test POC Ur Test Urine Opiates Screen Ur Methadone, Qual Acetaminophen Urine Barbiturates Ur Phencyclidine (PCP) U Amphetamin/Meth Scrn MDMA (Ecstasy) Screen U Benzodiazepines Scrn Ur Cocaine Metabolite U Marijuana (THC) Screen U Marijuana THC Carboxy Rheumatoid Factor MARYBEL Screen Anaplasma Smear Lyme Disease IgG Ab Negative Lyme Disease IgM Ab Negative COVID-19 Eval Order SARS-CoV-2 (PCR) [place] Type B(1) Ab [place] Type B(2) Ab [place] Type B(3) Ab [place] Type B(4) Ab [place] Type B(5) Ab [place] Type B(6) Ab CMV IgM Ab CMV IgG Ab/TORCH Hepatitis A Ab Total Hep Bs Antigen Hep B Core IgM Ab Hepatitis C Antibody Monoscreen HIV 1&2 Ab/P24 Ag 4thGn Influenza Type A (PCR) Influenza Type B (PCR) RSV (RT-PCR) Anti-Streptolysin Scrn Anti-Streptolysin Titr 10/16/20 10/17/20 10/17/20 20:08 00:11 00:15 WBC RBC Hgb Hct MCV MCH MCHC RDW Std Deviation RDW Coeff of Viridiana Plt Count MPV Immature Gran % (Auto) Neut % (Auto) Lymph % (Auto) [place] % (Auto) Eos % (Auto) Baso % (Auto) Neut # (Auto) Lymph # (Auto) [place] # (Auto) Eos # (Auto) Baso # (Auto) Immature Gran # (Auto) Neutrophils % (Manual) Lymphocytes % (Manual) Reactive Lymphs % (Man) Monocytes % (Manual) Eosinophils % (Manual) Neutrophils # (Manual) Total Absolute Neuts Lymphocytes # (Manual) Reactive Lymphs # Total Abs Lymphocytes Monocytes # (Manual) Eosinophils # (Manual) Peripher Smr Path Cons ESR PT INR Sodium Potassium Chloride Carbon Dioxide Anion Gap BUN Creatinine Est Cr Clr Drug Dosing Est GFR ( Amer) Est GFR (Non-Af Amer) BUN/Creatinine Ratio Glucose Lactate Calcium Total Bilirubin 1.3 H Direct Bilirubin 0.8 H AST 575 H ALT 578 H Alkaline Phosphatase 166 H Total Creatine Kinase Troponin I C-Reactive Protein Total Protein 7.2 Albumin 3.4 Globulin Albumin/Globulin Ratio Lipase Procalcitonin Urine Color Urine Appearance Urine pH Ur Specific [place] Urine Protein Urine Glucose (UA) Urine Ketones Urine Blood Urine Nitrite Urine Bilirubin Urine Urobilinogen Ur Leukocyte Esterase Urine WBC (Auto) Urine RBC (Auto) U Hyaline Cast (Auto) U Epithel Cells (Auto) Urine Bacteria (Auto) Urine Mucus Urine Yeast Urine Test POC Ur Test Urine Opiates Screen Ur Methadone, Qual Acetaminophen 6 L Urine Barbiturates Ur Phencyclidine (PCP) U Amphetamin/Meth Scrn MDMA (Ecstasy) Screen U Benzodiazepines Scrn Ur Cocaine Metabolite U Marijuana (THC) Screen U Marijuana THC Carboxy Rheumatoid Factor MARYBEL Screen Anaplasma Smear Lyme Disease IgG Ab Lyme Disease IgM Ab COVID-19 Eval Order SARS-CoV-2 (PCR) [place] Type B(1) Ab [place] Type B(2) Ab [place] Type B(3) Ab [place] Type B(4) Ab [place] Type B(5) Ab [place] Type B(6) Ab CMV IgM Ab CMV IgG Ab/TORCH Hepatitis A Ab Total Hep Bs Antigen Hep B Core IgM Ab Hepatitis C Antibody Monoscreen Negative HIV 1&2 Ab/P24 Ag 4thGn Influenza Type A (PCR) Influenza Type B (PCR) RSV (RT-PCR) Anti-Streptolysin Scrn Anti-Streptolysin Titr 10/17/20 10/17/20 10/17/20 05:32 05:32 05:32 WBC 3.79 L RBC 3.72 L Hgb 11.4 L Hct 33.6 L MCV 90.3 MCH 30.6 MCHC 33.9 RDW Std Deviation 45.5 RDW Coeff of Viridiana 13.7 Plt Count 204 MPV 10.5 H Immature Gran % (Auto) Neut % (Auto) Lymph % (Auto) [place] % (Auto) Eos % (Auto) Baso % (Auto) Neut # (Auto) Lymph # (Auto) [place] # (Auto) Eos # (Auto) Baso # (Auto) Immature Gran # (Auto) Neutrophils % (Manual) 47.8 Lymphocytes % (Manual) 31.3 Reactive Lymphs % (Man) 11.3 Monocytes % (Manual) 8.7 Eosinophils % (Manual) 0.9 Neutrophils # (Manual) 1.81 Total Absolute Neuts 1.81 Lymphocytes # (Manual) 1.19 L Reactive Lymphs # 0.43 Total Abs Lymphocytes 1.61 Monocytes # (Manual) 0.33 Eosinophils # (Manual) 0.03 Peripher Smr Path Cons ESR PT INR Sodium Potassium Chloride Carbon Dioxide Anion Gap BUN Creatinine Est Cr Clr Drug Dosing Est GFR ( Amer) Est GFR (Non-Af Amer) BUN/Creatinine Ratio Glucose Lactate Calcium Total Bilirubin Direct Bilirubin AST ALT Alkaline Phosphatase Total Creatine Kinase Troponin I C-Reactive Protein Total Protein Albumin Globulin Albumin/Globulin Ratio Lipase Procalcitonin Urine Color Urine Appearance Urine pH Ur Specific [place] Urine Protein Urine Glucose (UA) Urine Ketones Urine Blood Urine Nitrite Urine Bilirubin Urine Urobilinogen Ur Leukocyte Esterase Urine WBC (Auto) Urine RBC (Auto) U Hyaline Cast (Auto) U Epithel Cells (Auto) Urine Bacteria (Auto) Urine Mucus Urine Yeast Urine Test POC Ur Test Urine Opiates Screen Ur Methadone, Qual Acetaminophen Urine Barbiturates Ur Phencyclidine (PCP) U Amphetamin/Meth Scrn MDMA (Ecstasy) Screen U Benzodiazepines Scrn Ur Cocaine Metabolite U Marijuana (THC) Screen U Marijuana THC Carboxy Rheumatoid Factor Pending MARYBEL Screen Pending Anaplasma Smear See Comment Lyme Disease IgG Ab Lyme Disease IgM Ab COVID-19 Eval Order SARS-CoV-2 (PCR) [place] Type B(1) Ab Pending [place] Type B(2) Ab Pending [place] Type B(3) Ab Pending [place] Type B(4) Ab Pending [place] Type B(5) Ab Pending [place] Type B(6) Ab Pending CMV IgM Ab Pending CMV IgG Ab/TORCH Pending Hepatitis A Ab Total Hep Bs Antigen Hep B Core IgM Ab Hepatitis C Antibody Monoscreen HIV 1&2 Ab/P24 Ag 4thGn Influenza Type A (PCR) Influenza Type B (PCR) RSV (RT-PCR) Anti-Streptolysin Scrn Positive H Anti-Streptolysin Titr 200 H 10/17/20 10/17/20 10/17/20 05:32 05:32 05:32 WBC RBC Hgb Hct MCV MCH MCHC RDW Std Deviation RDW Coeff of Vir[place]iana Plt Count MPV Immature Gran % (Auto) Neut % (Auto) Lymph % (Auto) [place] % (Auto) Eos % (Auto) Baso % (Auto) Neut # (Auto) Lymph # (Auto) [place] # (Auto) Eos # (Auto) Baso # (Auto) Immature Gran # (Auto) Neutrophils % (Manual) Lymphocytes % (Manual) Reactive Lymphs % (Man) Monocytes % (Manual) Eosinophils % (Manual) Neutrophils # (Manual) Total Absolute Neuts Lymphocytes # (Manual) Reactive Lymphs # Total Abs Lymphocytes Monocytes # (Manual) Eosinophils # (Manual) Peripher Smr Path Cons ESR 7 PT INR Sodium 137 Potassium 3.4 L Chloride 107 Carbon Dioxide 23 Anion Gap 7.0 BUN 5 L Creatinine 0.55 L Est Cr Clr Drug Dosing 178.4 Est GFR ( Amer) > 150.0 Est GFR (Non-Af Amer) 134.1 BUN/Creatinine Ratio 8.2 L Glucose 100 H Lactate Calcium 8.2 L Total Bilirubin 1.6 H Direct Bilirubin AST 437 H ALT 504 H Alkaline Phosphatase 168 H Total Creatine Kinase Troponin I 0.120 H* C-Reactive Protein 3.28 H Total Protein 6.6 Albumin 3.2 L Globulin 3.4 Albumin/Globulin Ratio 0.9 Lipase Procalcitonin Urine Color Urine Appearance Urine pH Ur Specific [place] Urine Protein Urine Glucose (UA) Urine Ketones Urine Blood Urine Nitrite Urine Bilirubin Urine Urobilinogen Ur Leukocyte Esterase Urine WBC (Auto) Urine RBC (Auto) U Hyaline Cast (Auto) U Epithel Cells (Auto) Urine Bacteria (Auto) Urine Mucus Urine Yeast Urine Test POC Ur Test Urine Opiates Screen Ur Methadone, Qual Acetaminophen Urine Barbiturates Ur Phencyclidine (PCP) U Amphetamin/Meth Scrn MDMA (Ecstasy) Screen U Benzodiazepines Scrn Ur Cocaine Metabolite U Marijuana (THC) Screen U Marijuana THC Carboxy Rheumatoid Factor MARYBEL Screen Anaplasma Smear Lyme Disease IgG Ab Lyme Disease IgM Ab COVID-19 Eval Order SARS-CoV-2 (PCR) [place] Type B(1) Ab [place] Type B(2) Ab [place] Type B(3) Ab [place] Type B(4) Ab [place] Type B(5) Ab [place] Type B(6) Ab CMV IgM Ab CMV IgG Ab/TORCH Hepatitis A Ab Total Hep Bs Antigen Hep B Core IgM Ab Hepatitis C Antibody Monoscreen HIV 1&2 Ab/P24 Ag 4thGn Influenza Type A (PCR) Influenza Type B (PCR) RSV (RT-PCR) Anti-Streptolysin Scrn Anti-Streptolysin Titr 10/17/20 10/17/20 10/17/20 12:09 12:09 12:09 WBC RBC Hgb Hct MCV MCH MCHC RDW Std Deviation RDW Coeff of Vir[place]iana Plt Count MPV Immature Gran % (Auto) Neut % (Auto) Lymph % (Auto) [place] % (Auto) Eos % (Auto) Baso % (Auto) Neut # (Auto) Lymph # (Auto) [place] # (Auto) Eos # (Auto) Baso # (Auto) Immature Gran # (Auto) Neutrophils % (Manual) Lymphocytes % (Manual) Reactive Lymphs % (Man) Monocytes % (Manual) Eosinophils % (Manual) Neutrophils # (Manual) Total Absolute Neuts Lymphocytes # (Manual) Reactive Lymphs # Total Abs Lymphocytes Monocytes # (Manual) Eosinophils # (Manual) Peripher Smr Path Cons ESR PT INR Sodium Potassium Chloride Carbon Dioxide Anion Gap BUN Creatinine Est Cr Clr Drug Dosing Est GFR ( Amer) Est GFR (Non-Af Amer) BUN/Creatinine Ratio Glucose Lactate Calcium Total Bilirubin Direct Bilirubin AST ALT Alkaline Phosphatase Total Creatine Kinase 40 Troponin I C-Reactive Protein Total Protein Albumin Globulin Albumin/Globulin Ratio Lipase Procalcitonin Urine Color Urine Appearance Urine pH Ur Specific [place] Urine Protein Urine Glucose (UA) Urine Ketones Urine Blood Urine Nitrite Urine Bilirubin Urine Urobilinogen Ur Leukocyte Esterase Urine WBC (Auto) Urine RBC (Auto) U Hyaline Cast (Auto) U Epithel Cells (Auto) Urine Bacteria (Auto) Urine Mucus Urine Yeast Urine Test POC Ur Test Urine Opiates Screen Ur Methadone, Qual Acetaminophen Urine Barbiturates Ur Phencyclidine (PCP) U Amphetamin/Meth Scrn MDMA (Ecstasy) Screen U Benzodiazepines Scrn Ur Cocaine Metabolite U Marijuana (THC) Screen U Marijuana THC Carboxy Rheumatoid Factor MARYBEL Screen Anaplasma Smear Lyme Disease IgG Ab Lyme Disease IgM Ab COVID-19 Eval Order SARS-CoV-2 (PCR) [place] Type B(1) Ab [place] Type B(2) Ab [place] Type B(3) Ab [place] Type B(4) Ab [place] Type B(5) Ab [place] Type B(6) Ab CMV IgM Ab CMV IgG Ab/TORCH Hepatitis A Ab Total Pending Hep Bs Antigen Neg Hep B Core IgM Ab Pending Hepatitis C Antibody Neg Monoscreen HIV 1&2 Ab/P24 Ag 4thGn Influenza Type A (PCR) Influenza Type B (PCR) RSV (RT-PCR) Anti-Streptolysin Scrn Anti-Streptolysin Titr 10/17/20 12:09 WBC RBC Hgb Hct MCV MCH MCHC RDW Std Deviation RDW Coeff of [place] Plt Count MPV Immature Gran % (Auto) Neut % (Auto) Lymph % (Auto) [place] % (Auto) Eos % (Auto) Baso % (Auto) Neut # (Auto) Lymph # (Auto) [place] # (Auto) Eos # (Auto) Baso # (Auto) Immature Gran # (Auto) Neutrophils % (Manual) Lymphocytes % (Manual) Reactive Lymphs % (Man) Monocytes % (Manual) Eosinophils % (Manual) Neutrophils # (Manual) Total Absolute Neuts Lymphocytes # (Manual) Reactive Lymphs # Total Abs Lymphocytes Monocytes # (Manual) Eosinophils # (Manual) Peripher Smr Path Cons ESR PT INR Sodium Potassium Chloride Carbon Dioxide Anion Gap BUN Creatinine Est Cr Clr Drug Dosing Est GFR ( Amer) Est GFR (Non-Af Amer) BUN/Creatinine Ratio Glucose Lactate Calcium Total Bilirubin Direct Bilirubin AST ALT Alkaline Phosphatase Total Creatine Kinase Troponin I C-Reactive Protein Total Protein Albumin Globulin Albumin/Globulin Ratio Lipase Procalcitonin Urine Color Urine Appearance Urine pH Ur Specific [place] Urine Protein Urine Glucose (UA) Urine Ketones Urine Blood Urine Nitrite Urine Bilirubin Urine Urobilinogen Ur Leukocyte Esterase Urine WBC (Auto) Urine RBC (Auto) U Hyaline Cast (Auto) U Epithel Cells (Auto) Urine Bacteria (Auto) Urine Mucus Urine Yeast Urine Test POC Ur Test Urine Opiates Screen Ur Methadone, Qual Acetaminophen Urine Barbiturates Ur Phencyclidine (PCP) U Amphetamin/Meth Scrn MDMA (Ecstasy) Screen U Benzodiazepines Scrn Ur Cocaine Metabolite U Marijuana (THC) Screen U Marijuana THC Carboxy Rheumatoid Factor MARYBEL Screen Anaplasma Smear Lyme Disease IgG Ab Lyme Disease IgM Ab COVID-19 Eval Order SARS-CoV-2 (PCR) [place] Type B(1) Ab [place] Type B(2) Ab [place] Type B(3) Ab [place] Type B(4) Ab [place] Type B(5) Ab [place] Type B(6) Ab CMV IgM Ab CMV IgG Ab/TORCH Hepatitis A Ab Total Hep Bs Antigen Hep B Core IgM Ab Hepatitis C Antibody Monoscreen HIV 1&2 Ab/P24 Ag 4thGn Neg Influenza Type A (PCR) Influenza Type B (PCR) RSV (RT-PCR) Anti-Streptolysin Scrn Anti-Streptolysin Titr Diagnostic Findings Liver ultrasound 10/17/2020: No evidence for acute cholecystitis per Radiology. Obscured pancreas. Chest CT 10/16/2020: No acute intrathoracic findings per Radiology. No consolidation. CT abdomen/pelvis 10/16/2020: No bowel obstruction. No evidence for acute appendicitis or diverticulitis. Echo 10/17/2020: Normal LV size, wall motion, systolic function. EF 60-65%. No LVH. No significant diastolic dysfunction. No significant valvular abnormalities. ECG 10/16/2020 personally reviewed: Sinus rhythm 83 beats per minute. Medications Administered Current Inpatient Medications Acetaminophen (Acetaminophen 325 Mg Tab) 650 mg PO Q4H PRN PRN Reason: Pain or Fever Stop: 11/16/20 02:03 Last Admin: 10/17/20 03:16 Dose: 650 mg Documented by: Aspirin (Aspirin 325 Mg Ectab) 325 mg PO BID [facility] Stop: 11/16/20 02:03 Last Admin: 10/17/20 09:37 Dose: Not Given Documented by: Colchicine (Colchicine 0.6 Mg Tab) 0.6 mg PO BID [facility] Stop: 11/16/20 02:03 Last Admin: 10/17/20 09:37 Dose: Not Given Documented by: Sodium Chloride (Nss 1000ml) 1,000 mls @ 125 mls/hr IV .Q8H [facility] Stop: 10/17/20 18:03 Last Admin: 10/17/20 10:23 Dose: 125 mls/hr Documented by: Polyethylene Glycol (Polyethylene (Miralax) 17 Gm Pack) 17 gm PO DAILY PRN PRN Reason: Constipation Stop: 11/16/20 02:03 PG Care Time/CCT Total # of Minutes Spent Total Time Spent with Patient: Total time spent is greater than 50% in coordination of care (as documented) at patient's floor/unit and/or counseling patient: Coding Level of Care Code 92927 Inpt Consult Level 4 Diagnoses Elevated troponin R77.8 Fever R50.9 Fever type: unspecified Elevated transaminase level R74.01 (1) Fever Fever type: unspecified Qualified Code(s): R50.9 - Fever, unspecified
--- NOTE | 2020-10-17 16:05 | Hospitalist Progress Note ---
Date of Service October 17, 2020 Assessment & Plan (1) Febrile illness: Alda is a 19-year-old female who presented to [facility] for 2 weeks of ongoing fever, fatigue, and occasional myalgias, subsequently found to have transaminitis, very mildly elevated troponin, and a mild leukopenia, suspected at this time to most likely represent a resolving acute viral illness. Work-up is ongoing. She is hemodynamically stable. Neuro - No evidence of focal neurologic deficits on exam or other neurologic manifestations that would be concerning for a central or peripheral nervous system infection Continue to monitor Cardiac - Elevated troponin On admission, patient found to have evidence of mild troponin elevation to the ~0.15 range with subsequent downtrend to 0.12 Noted in the setting of ongoing fevers for approximately 2 weeks, no cardiac symptoms, minimally elevated CRP, normal ESR Physical exam without evidence of volume overload or acute cardiac dysfunction/rubs/new murmurs Echocardiogram without focal abnormalities, abnormal amounts of pericardial fluid; left ventricular systolic function within normal limits Out of concern that this may represent underlying myocarditislikely viral in origincardiology consulted for further recommendations Elevated troponin may be secondary to demand ischemia from underlying febrile illness versus very mild myocarditis As there are no ongoing symptoms/findings consistent with pericarditis, discontinue colchicine and high dose aspirin Continuous cardiac monitoring with telemetry Respiratory - Symptomatically, patient not reporting any lower respiratory symptoms over the past 2 weeks in the setting of this ongoing febrile illness Chest x-ray without focal abnormalities or airspace opacities COVID-19 swab negative in the ER We will continue to monitor; no need for supplemental oxygen at present GI - Transaminitis Initially, AST predominant transaminitis appreciated on admission in the 6-700 range; this is subsequently improved with IV fluids to AST 437/ALT 504 on day 1 of admission T bili mildly elevated to 1.6, D bili 0.8 INR within normal limits No symptoms of abdominal pain that might be consistent with an obstructive process Liver ultrasound was largely unremarkable for any acute or chronic processes Hepatitis panels for B and C-, otherwise a is still pending CPK within normal limits Or do suspect that this represents a part of acute viral illness/post viral syndrome; however, we will continue to monitor these numbers as well as liver synthetic tests for any acute changes Continue infectious, rheumatologic work-up as below Continue IV fluids Frequent bowel movements for many years Per patient, has multiple (5-10) small, formed bowel movements a day without cramping Notes that she has been worked up for this extensively by GI at the [facility] She reports being tested for celiac disease multiple times, all of which is come back negative Noted; do not believe that this has a contribution to her acute illness at present. CT abdomen pelvis did show a large stool burdendo wonder if there may be an element of hypomotility and constipation that may be contributing We will add on MiraLAX daily Hematochezia Patient reports several month history of intermittently mixed blood in her stool She is also being worked up by her outside GI doctors for this too; there have been no significant changes over the course of her acute illness Evidence of mild anemia on her daily labs; unsure if this may be related or not given no access to previous files At this time, low suspicion that frequent bowel movements/hematochezia are related to acute illness, especially considering how long they have been going on. Briefly considered was the possibility of new onset inflammatory bowel disease; however, no acute changes from a symptomatic perspective, this seems less likely. Continued outpatient work-up will be required. RENAL/LYTES - No evidence of renal involvement at this time; BMP demonstrating stable function. We will obtain CMP on daily basis while here - Initial Concern for Retained Foreign Body -- low concern for TSS Symptomatically, patient is not complaining of any acute issues from a gynecologic standpoint Patient did initially report concerns of possible retained foreign body in the vagina, however on clarification of this point, this seems quite unlikely; patient was also seen at urgent care day after this would have occurred, with no significant findings there either. She denies any persistent or copious discharge/irritation. Toxic shock syndrome seems quite unlikely given her clinical appearance, labs, and otherwise lack of local symptoms. Pelvic exam in the ER was not significant for any acute findings Abnormal Urinalysis without Symptoms On admission, patient was noted to have trace ketones, blood, nitrites, leuk esterase on her UAhowever, in the absence of any urinary symptoms, do not suspect that this represents an acute UTI. Discontinue antibiotics. Abnormal colored urine Secondary to bilirubinuria and likely a component of dehydration Trace red blood cells in the urine ENDO - No concerns at this time HEME - Mild leukopenia Upon her arrival in the ER, patient was noted to have a mild leukopenia to 3.7- 4. Peripheral smear does not demonstrate any dysplastic cells. Granulocytes predominate and appear mature. No blasts. Red blood cells morphologically unremarkable. No intracytoplasmic inclusions. Diminished amount of leukocytes. In the setting of 2 weeks of fever, sore throat, transaminitis, mildly elevated troponins -- do suspect that this most likely represents the product of a viral reaction Anaplasmosis not appreciable on smear. PCR negative. HIV negative No evidence of diffuse lymphadenopathy on exam/other findings at present that would be concerning for malignancy We will continue to follow ID - Fever for 2 weeks Patient reports intermittent fever ongoing for the last 2 weeks, most noticeable at night however was taking Tylenol during the day Only other symptoms include a mild sore throat approximately a week and 1/2 to 2 weeks ago which subsequently resolved on its own within a day Patient denying any sort of rashes or joint pains that developed over this time, no respiratory illness, mild congestion that is gotten better on its own Etiology of this ongoing fever still somewhat unclear at this time, but work-up that is ongoing narrows the diagnosis Blood cultures are still pending, however given the otherwise low inflammatory markers, absence of left shift, and possible origin, low suspicion that this represents an acute and ongoing bacteremia Certainly her sore throat around the start of the fevers is interesting, her antistreptolysin titers came back just mildly elevated; however this is in the context of somebody who had multiple strep throats over the preceding years. Low suspicion that this represents an acute and ongoing rheumatic fever given her constellation of symptoms and laboratory findings. Echocardiogram without focal abnormalities, troponin just mildly elevated As above, HIV negative [place] screen negative, CMV pending Anaplasmosis PCR and smear negative MARYBEL, rheumatoid factor pendingrheumatologic etiologies are considered, await the screens and other work-up for further possible investigation Hepatitis A, B, C -a pending, B and C without indication of acute infection Urinalysis notable for leuk esterase and nitrites, however in the absence of any urinary symptoms, low suspicion for UTIespecially over the timeframe the patient reports her fever Patient's travel history as noted, as well as the fact that no malarial prophylaxis was utilized. However, smear was negative. Given the lack of other classic symptoms, this does seem unlikelyespecially in the time frame it has been since she traveled in his no acute illness reported while she was traveling. All this considered, suspect that the cause of this fever, as well as transaminitis, and mildly elevated troponin, are likely secondary to an acute viral illness or postviral syndrome. We will continue to monitor symptoms, labs while she is here. Await further work-up. If there seems to be a plateau in improvement while she is here, symptomatically and her labs, can consider starting empiric doxycycline for possible tickborne illnessessuch as anaplasmosis (mild leukopenia is noted, however there is no thrombocytopenia)given possibility for false negatives on testing and clinical correlation. INTEGUMENTARY - No history of rashes throughout this current illness. Continue to monitor. LINES/IV ACCESS - PIVs intact. DVT PROPHYLAXIS - Ambulate ad parisa. (2) Urinary tract infection: (3) Myocarditis: (4) Fever: (5) Elevated transaminase level: (6) Elevated troponin: Admission and Anticipated Discharge Date Admission Date: October 16, 2020 Supervising Physician Co-Signing Physician Notes I personally examined the patient and verified all sanders points of history and exam, discussed case, and agree with decision making with Dr Acosta. Feeling okay overall. No new symptoms. No real chest pain. No shortness of breath. No myalgias that are new or different. No abdominal pain. No dysuria. No vaginal discharge. Vitals noted, in general she is awake and alert pleasant no distress. HEENT normocephalic atraumatic mucous membranes moist. Breathing unlabored no accessory muscle use good effort. Skin shows no rashes no pallor or icterus. Labs and diagnostics noted. Febrile illness -Myalgias, leukopenia and anemia, transaminitis, mild troponin elevationmost likely this is a viral syndrome, particularly given the diffuse organ system involvement, and the long meandering course of illness without overt sepsis or focal signs or symptoms of infection. Her LFTs are already trending down, her troponin appears to have peaked at a very low level, and overall she thinks she is feeling a bit better. We will continue to follow into tomorrow, and if her labs continue to show improvement, likely we can look at home then with ongoing outpatient follow-up to trend her labs back to normal. Should she worsen or things plateau, while a bit atypical for tickborne pathogens such as anaplasmosis, given that we are in a quite endemic area, a course of empiric doxycycline would be reasonable should her clinical course fail to continue to track like that of a viral illness. Fortunately she is not severely immune compromised, and therefore treatment would generally be supportive. Further fortunately, HIV and hepatitis are overall negative (hep a and B core IgM are still pending). Suspect ASO titer relates to prior episodes of strep. Otherwise as above Subjective Patient seen at bedside this morning, reports feeling well overall. We reviewed her history of present illness; additions or revisions are as listed below Patient reports approximately 2 weeks of fever that have mostly been minimal during the day, but would occasionally get worse during the night when her Tylenol would wear off. She also reports that approximately a week and a half ago, she also did have a very mild, self-limited sore throat that thereafter resolved on its own. She reports that intermittently, she has had some congestion, and then beginning yesterday she also had dark redyellow-colored urine. She has had no pain, cough, rash, joint pain otherwise. She does report mild intermittent myalgias. We did review her travel history, she denies any acute illnesses experienced while traveling. We also did review her recent visit to urgent care; she reports that she was worried about retained portion of a condom from her recent sexual encounter, however neither she nor the urgent care center found anything. She denies any recent or persistent vaginal discharge, irritation, etc. At the bedside this morning, she does report feeling fatigued, but otherwise well. Her last temperature was recorded last night. Endorses an appetite. No nausea or vomiting. Denies any chest pain, palpitations, shortness of breath. Review of Systems Review of Systems: As per HPI Physical Exam Physical Exam: General: 19-year-old tired-appearing female who is alert, oriented, and appears in no acute distress. She is non-toxic appearing. Very mildly diaphoretic. NAD - very pleasant and engaged in this interaction. HEENT: NCAT. Eyes - Sclera are white, anicteric, and without injection. PERRL. Mouth - MMM with no tonsillar edema or exudates. Neck - supple and with mild unilateral LAD in the R submandibular area. No JVD. Cardiac: Normal rate and regular rhythm; S1 and S2 present with no murmurs, rubs, or gallops. Pulmonary: Good respiratory effort with symmetric expansion of the chest. No use of accessory muscles. Lungs were clear to auscultation bilaterally with no crackles or wheezes. Abdominal: Normoactive bowel sounds. Abdomen was soft, nondistended, and non- tender to palpation. No hepatomegaly or splenomegaly. Extremities: Upper and lower extremities are warm and well perfused. No peripheral edema. Psych: Well-developed, well-nourished, appropriately dressed for occasion. Behavior is cooperative and appropriate. Affect is WNL. Insight is appropriate. Results & Data Results & Data ([facility]) Vital Signs (Past 12 Hours) Vital Signs Temp Pulse Pulse Resp BP BP Pulse Ox 10/17/20 15:05 36.7 C 75 20 121/76 97 10/17/20 11:15 37.0 C 69 20 119/68 98 10/17/20 07:34 37.0 C 50 L 18 112/74 97 10/17/20 06:10 37.1 C 10/17/20 05:20 38.3 C H 10/17/20 04:17 81 10/17/20 04:13 38.6 C H 91 H 18 113/76 97 Resident Activity Tracking Resident Involvement: Resident Care Provided Care Provided: Adult Hospital Medicine (1) Urinary tract infection Hematuria presence: with hematuria Urinary tract infection type: site unspecified Qualified Code(s): N39.0 - Urinary tract infection, site not specified; R31.9 - Hematuria, unspecified (2) Fever Fever type: unspecified Qualified Code(s): R50.9 - Fever, unspecified (3) Myocarditis Chronicity: acute Myocarditis type: unspecified Qualified Code(s): I40.9 - Acute myocarditis, unspecified
--- NOTE | 2020-10-17 18:00 | Billing Data ---
Date of Service October 17, 2020 Coding Level of Care Code 71122 Subseq Hosp Care Lvl 3
[2020-10-18 05:06] LABS: Hepatitis A Antibody Total REACTIVE (NON-REACTIVE); Hepatitis B Core Antibody IgM NON-REACTIVE (NON-REACTIVE)
--- NOTE | 2020-10-18 06:15 | Electrocardiogram Report ---
Test Reason : Blood Pressure : / mmHG Vent. Rate : 083 BPM Atrial Rate : 083 BPM P-R Int : 150 ms QRS Dur : 084 ms QT Int : 366 ms P-R-T Axes : 057 029 004 degrees QTc Int : 430 ms Normal sinus rhythm Possible Left atrial enlargement Borderline ECG No previous ECGs available Confirmed by Maxim Hemphill ([id number]) on 10/18/2020 6:14:46 AM Referred By: REFERRED SELF Confirmed By:Maxim Hemphill
[2020-10-18 07:12] LABS: Hematocrit (blood only) 35.5 % (37-47); Hemoglobin 12.1 g/dL (12.0-16.0); Mean Corpuscular Hemoglobin 30.7 pg (25-34); Mean Corpuscular Hgb Conc 34.1 g/dL (32-36); Mean Corpuscular Volume 90.1 fL (80-100); Mean Platelet Volume 9.9 fL (7.4-10.4); Platelet Count 230 K/uL (130-400); RDW Coefficient of Variation 13.7 % (11.5-14.5); RDW Standard Deviation 45.6 fL (36.4-46.3); Red Blood Count 3.94 M/uL (4.2-5.4); White Blood Count 5.89 K/uL (4.8-10.8)
[2020-10-18 07:32] LABS: INR 1.1 (0.9-1.1)
[2020-10-18 07:40] LABS: ALC (manual) 4.15 K/uL (1.2-3.4); ANC (manual) 1.23 K/uL (1.4-6.5); Eosinophils # (manual) 0.21 K/uL (0-0.5); Eosinophils % (manual) 3.5 %; Lymphocytes # (manual) 1.74 K/uL (1.2-3.4); Lymphocytes % (manual) 29.6 %; Monocytes # (manual) 0.31 K/uL (0.11-0.59); Monocytes % (manual) 5.2 %; Neutrophils # (manual) 1.23 K/uL (1.4-6.5); Neutrophils % (manual) 20.9 %; Reactive Lymphocytes % (manual) 40.8 %
[2020-10-18 07:57] LABS: Alanine Aminotransferase 500 U/L (12-78); Albumin Level 3.3 gm/dl (3.4-5.0); Aspartate Aminotransferase 388 U/L (15-37); BUN Creatinine Ratio 6.2 (10-20); Blood Urea Nitrogen 3 mg/dl (7-18); Calcium 8.7 mg/dl (8.5-10.1); Carbon Dioxide 24 mmol/L (21-32); Chloride 106 mmol/L (98-107); Creatinine Clr Calc Pharmacy 183.7 ml/min; Est GFR (African American) > 150.0; Est GFR (Non-African American) 135.7; Glucose 89 mg/dl (70-99); Potassium 3.8 mmol/L (3.5-5.1); Sodium 137 mmol/L (136-145)
[2020-10-18 08:17] LABS: Albumin Globulin Ratio 0.9 (0.9-2); Alkaline Phosphatase 192 U/L (45-117); Bilirubin,Total 2.4 mg/dl (0.2-1); Globulin 3.8 gm/dl (2.5-4.0); Total Protein 7.1 gm/dl (6.4-8.2)
[2020-10-18] MEDS ORDERED: VANCOMYCIN TROUGH ONE (08:30)
[2020-10-18] MEDS ORDERED: POLYETHYLENE (MIRALAX) 17 GM PACK PO SCH (09:00)
--- NOTE | 2020-10-18 10:30 | Hospitalist Progress Note ---
Date of Service October 18, 2020 Assessment & Plan (1) Febrile illness: Alda is a 19-year-old female who presented to [facility] for 2 weeks of ongoing fever, fatigue, and occasional myalgias, subsequently found to have transaminitis, very mildly elevated troponin, and a mild leukopenia, suspected at this time to most likely represent a resolving acute viral illness. Work-up is ongoing. She is hemodynamically stable. Neuro - No evidence of focal neurologic deficits on exam or other neurologic manifestations that would be concerning for a central or peripheral nervous system infection Continue to monitor Cardiac - Elevated troponin On admission, patient found to have evidence of mild troponin elevation to the ~0.15 range with subsequent downtrend to 0.12 Noted in the setting of ongoing fevers for approximately 2 weeks, no cardiac symptoms, minimally elevated CRP, normal ESR Physical exam without evidence of volume overload or acute cardiac dysfunction/rubs/new murmurs Echocardiogram without focal abnormalities, abnormal amounts of pericardial fluid; left ventricular systolic function within normal limits Out of concern that this may represent underlying myocarditislikely viral in origincardiology consulted for further recommendations Elevated troponin may be secondary to demand ischemia from underlying febrile illness versus very mild myocarditis Discontinue colchicine and ASA given no findings of pericarditis Continuous cardiac monitoring with telemetry Respiratory - Symptomatically, patient not reporting any lower respiratory symptoms over the past 2 weeks in the setting of this ongoing febrile illness Chest x-ray without focal abnormalities or airspace opacities COVID-19 swab negative in the ER Continues to be asymptomatic, no notable findings on exam GI - Transaminitis Initially, AST predominant transaminitis appreciated on admission in the 600- 700 range; this is subsequently improved with IV fluids to AST 437/ALT 504 on day 1 of admission Minimal improvement on 10/18 --> ALT 500 / AST 388 T bili initially mildly elevated to 1.6, D bili 0.8 --> TBili 2.4 ALP 192 --> downtrended --> back to 192 INR within normal limits No symptoms of abdominal pain that might be consistent with an obstructive process Liver ultrasound was largely unremarkable for any acute or chronic processes Hepatitis panels for B, C negative - Total IgG CPK within normal limits Or do suspect that this represents a part of acute viral illness/post viral syndrome; however, we will continue to monitor these numbers as well as liver synthetic tests for any acute changes Continue infectious, rheumatologic work-up as below Continue IV fluids Frequent bowel movements for many years Per patient, has multiple (5-10) small, formed bowel movements a day without cramping Notes that she has been worked up for this extensively by GI at the [facility] She reports being tested for celiac disease multiple times, all of which is come back negative Noted; do not believe that this has a contribution to her acute illness at present. CT abdomen pelvis did show a large stool burdendo wonder if there may be an element of hypomotility and constipation that may be contributing We will add on MiraLAX daily Hematochezia Patient reports several month history of intermittently mixed blood in her stool She is also being worked up by her outside GI doctors for this too; there have been no significant changes over the course of her acute illness Evidence of mild anemia on her daily labs; unsure if this may be related or not given no access to previous files At this time, low suspicion that frequent bowel movements/hematochezia are related to acute illness, especially considering how long they have been going on. Briefly considered was the possibility of new onset inflammatory bowel disease; however, no acute changes from a symptomatic perspective, this seems less likely. Continued outpatient work-up will be required. RENAL/LYTES - No evidence of renal involvement at this time; BMP demonstrating stable function. We will obtain CMP on daily basis while here - Initial Concern for Retained Foreign Body -- low concern for TSS Symptomatically, patient is not complaining of any acute issues from a gynecologic standpoint Patient did initially report concerns of possible retained foreign body in the vagina, however on clarification of this point, this seems quite unlikely; patient was also seen at urgent care day after this would have occurred, with no significant findings there either. She denies any persistent or copious discharge/irritation. Toxic shock syndrome seems quite unlikely given her clinical appearance, labs, and otherwise lack of local symptoms. Pelvic exam in the ER was not significant for any acute findings Abnormal Urinalysis without Symptoms On admission, patient was noted to have trace ketones, blood, nitrites, leuk esterase on her UAhowever, in the absence of any urinary symptoms, do not suspect that this represents an acute UTI. Discontinue antibiotics. Abnormal colored urine Secondary to bilirubinuria and likely a component of dehydration Trace red blood cells in the urine ENDO - No concerns at this time HEME - Mild leukopenia Upon her arrival in the ER, patient was noted to have a mild leukopenia to 3.7- 4. Peripheral smear does not demonstrate any dysplastic cells. Granulocytes predominate and appear mature. No blasts. Red blood cells morphologically unremarkable. No intracytoplasmic inclusions. Diminished amount of leukocytes. In the setting of 2 weeks of fever, sore throat, transaminitis, mildly elevated troponins -- do suspect that this most likely represents the product of a viral reaction Anaplasmosis not appreciable on smear. PCR negative. HIV negative No evidence of diffuse lymphadenopathy on exam/other findings at present that would be concerning for malignancy We will continue to follow ID - Fever for 2 weeks Patient reports intermittent fever ongoing for the last 2 weeks, most noticeable at night however was taking Tylenol during the day Only other symptoms include a mild sore throat approximately a week and 1/2 to 2 weeks ago which subsequently resolved on its own within a day Patient denying any sort of rashes or joint pains that developed over this time, no respiratory illness, mild congestion that is gotten better on its own Etiology of this ongoing fever still somewhat unclear at this time, but work-up that is ongoing narrows the diagnosis Blood cultures are still pending, however given the otherwise low inflammatory markers, absence of left shift, and possible origin, low suspicion that this represents an acute and ongoing bacteremia Certainly her sore throat around the start of the fevers is interesting, her antistreptolysin titers came back just mildly elevated; however this is in the context of somebody who had multiple strep throats over the preceding years. Low suspicion that this represents an acute and ongoing rheumatic fever given her constellation of symptoms and laboratory findings. Echocardiogram without focal abnormalities, troponin just mildly elevated As above, HIV negative Placer screen negative, CMV pending Anaplasmosis PCR and smear negative MARYBEL, rheumatoid factor pendingrheumatologic etiologies are considered, await the screens and other work-up for further possible investigation Hepatitis A, B, C -a pending, B and C without indication of acute infection Urinalysis notable for leuk esterase and nitrites, however in the absence of any urinary symptoms, low suspicion for UTIespecially over the timeframe the patient reports her fever Patient's travel history as noted, as well as the fact that no malarial prophylaxis was utilized. However, smear was negative. Given the lack of other classic symptoms, this does seem unlikelyespecially in the time frame it has been since she traveled in his no acute illness reported while she was traveling. All this considered, suspect that the cause of this fever, as well as transaminitis, and mildly elevated troponin, are likely secondary to an acute viral illness or postviral syndrome. We will continue to monitor symptoms, labs while she is here. Await further work-up. If there seems to be a plateau in improvement while she is here, symptomatically and her labs, can consider starting empiric doxycycline for possible tickborne illnessessuch as anaplasmosis (mild leukopenia is noted, however there is no thrombocytopenia)given possibility for false negatives on testing and clinical correlation. INTEGUMENTARY - No history of rashes throughout this current illness. Continue to monitor. LINES/IV ACCESS - PIVs intact. DVT PROPHYLAXIS - Ambulate ad parisa. (2) Urinary tract infection: (3) Myocarditis: (4) Fever: (5) Elevated transaminase level: (6) Elevated troponin: Admission and Anticipated Discharge Date Admission Date: October 16, 2020 Subjective Last night, patient did have a temperature to 38.1. At this time, she did report having chills and cold sweats; these did resolve after Tylenol. While she reported feeling fatigue during this time, she denied any other symptomsincluding nausea, vomiting, diarrhea, joint pains, or anything else out of the usual. At the bedside this morning, patient reports feeling tired, but better than last night. She does report having an appetite. Review of Systems Review of Systems: As per HPI Physical Exam Physical Exam: General: 19-year-old tired-appearing female who is alert, oriented, and appears in no acute distress. She is non-toxic appearing. Mildly diaphoretic. NAD. HEENT: NCAT. Eyes - Sclera are white, anicteric, and without injection. PERRL. Mouth - MMM with no tonsillar edema or exudates. Cardiac: Normal rate and regular rhythm; S1 and S2 present with no murmurs, rubs, or gallops. Pulmonary: Good respiratory effort with symmetric expansion of the chest. No use of accessory muscles. Lungs were clear to auscultation bilaterally with no crackles or wheezes. Abdominal: Normoactive bowel sounds. Abdomen was soft, nondistended, and non- tender to palpation. No hepatomegaly or splenomegaly. Extremities: Upper and lower extremities are warm and well perfused. No peripheral edema. Results & Data Results & Data ([facility]) Vital Signs (Past 12 Hours) Vital Signs Temp Pulse Pulse Resp BP BP Pulse Ox 10/18/20 07:44 37.1 C 72 18 118/73 97 10/18/20 07:39 73 10/18/20 04:00 37.1 C 83 18 117/72 97 10/17/20 23:53 36.9 C 61 18 111/71 97 10/17/20 23:00 64 (1) Urinary tract infection Hematuria presence: with hematuria Urinary tract infection type: site unspecified Qualified Code(s): N39.0 - Urinary tract infection, site not specified; R31.9 - Hematuria, unspecified (2) Myocarditis Chronicity: acute Myocarditis type: unspecified Qualified Code(s): I40.9 - Acute myocarditis, unspecified (3) Fever Fever type: unspecified Qualified Code(s): R50.9 - Fever, unspecified
--- NOTE | 2020-10-18 11:14 | Discharge Summary ---
Date of Service October 18, 2020 Admission HPI Per Admitting Provider Alda Canales is a 19 yo female who was previously healthy and developed a fever for 2 weeks. She felt well otherwise but more recently she developed nausea and one episode of vomiting. The fevers would improve during the day when she was taking Tylenol but would worsen overnight while she was not taking Tylenol. She did go to an Urgent care 2 weeks prior with concern for a retained part of a condom, nothing was seen on exam and they instructed her to go to the hospital if she had any signs of infection. She had been putting this off. 1.5 weeks ago she noted that she had developed a sore throat, congestion and a cough. She has a history of urinary reflux and several UTI's in the past and was on antibiotics until the age of 10. She has not had any UTI's since then. She does not have any dysuria or polyuria but does have some dark tea colored urine that developed today. Last spring she went to [place] ([place] and [place]) and [place] ([facility] and [facility]); she was doing "tourist" things and did not use malaria prophylaxis because she was not going to high risk locations. She was not sick during her time abroad. The patient has also noted blood in her stool over the last 2 months. She has on average 10 bowel movements a day and has noted that she had blood in her stool that was in the process of being worked up with GI with a planned colonoscopy on November 13. She denies any neck stiffness but does note a lymph node on her left side. Social history: - She just graduated from [employer] and planned to move back to [place] on Friday. - vaping and marijuana occasionally - cocaine use X2 in July - sexually active with men 4-5 over the last 6 months consistent condom use, not on control - regular periods LMP October 06 Admission Exam Per Admitting Provider Constitutional: well developed and well nourished; no acute distress Eyes: PERRL, conjunctivae normal, anicteric sclerae ENMT: external ear and nose normal, oropharynx normal Neck: negative Brudzinski's sign and negative Kernig's sign no significant LAD appreciated in the anterior or posterior cervical chain Respiratory: normal respiratory effort, lungs clear to auscultation Cardiovascular: RRR, no murmur, no edema Gastrointestinal (Abdomen): normal bowel sounds, soft, nontender, no hepatosplenomegaly Skin: no rashes, warm and dry Neurologic: no focal motor deficits Psychiatric: A+Ox3, euthymic affect Principal Diagnosis fever -- suspected to be secondary to viral illness / syndrome transaminitis mildly elevated troponin Discharge Exam General: 19-year-old tired-appearing female who is alert, oriented, and appears in no acute distress. She is non-toxic appearing. Mildly diaphoretic. NAD. HEENT: NCAT. Eyes - Sclera are white, anicteric, and without injection. PERRL. Mouth - MMM with no tonsillar edema or exudates. Cardiac: Normal rate and regular rhythm; S1 and S2 present with no murmurs, rubs, or gallops. Pulmonary: Good respiratory effort with symmetric expansion of the chest. No use of accessory muscles. Lungs were clear to auscultation bilaterally with no crackles or wheezes. Abdominal: Normoactive bowel sounds. Abdomen was soft, nondistended, and non- tender to palpation. No hepatomegaly or splenomegaly. Extremities: Upper and lower extremities are warm and well perfused. No peripheral edema. Discharge Data Allergies Allergy/AdvReac Type Severity Reaction Status Date / Time No Known Allergies Allergy Unverified 10/16/20 20:05 Consultations 10/16/20 21:39 ED Decision to Admit Stat 10/17/20 02:04 Consult Cardiology Routine Ordered Studies 10/16/20 22:23 CT abd pelvis wo con Urgent CT chest diagnostic wo con Urgent 10/17/20 11:30 US liver Routine Hospital Course (1) Febrile illness: Alda is a 19-year-old female who presented to [facility] for 2 weeks of ongoing fever, fatigue, and occasional myalgias, subsequently found to have transaminitis, very mildly elevated troponin, and a mild leukopenia, suspected at this time to most likely represent a resolving acute viral illness. Work-up is ongoing and will continue into the outpatient setting. In the interim, she is stable for discharge. SUMMARY OF RECOMMENDATIONS - Suspect fever, transaminitis, and mildly elevated troponin are secondary to acute viral syndrome - Transaminitis improved since admission, but still present on discharge -- recommend further work-up in outpatient setting - Repeat CMP/LFTs q72h until resolution of transaminitis - If no improvement of symptoms/labs OR worsening after 72 hours, recommend initiating empiric doxycycline to cover for tickborne illnesses (see ID section below) - Recommend continued work-up of longstanding frequent BMs, hematochezia in the outpatient setting, as already planned per patient Pending Labs: Hep A IgM, Coxsackie, CMV, Lyme IgG + IgM, RF, [facility] AND PLANS BY BODY SYSTEM Neuro - No evidence of focal neurologic deficits on exam or other neurologic manifestations that would be concerning for a central or peripheral nervous system infection Continue to monitor Cardiac - Elevated troponin On admission, patient found to have evidence of mild troponin elevation to the ~0.15 range with subsequent downtrend to 0.12 Noted in the setting of ongoing fevers for approximately 2 weeks, no cardiac symptoms, minimally elevated CRP, normal ESR Physical exam without evidence of volume overload or acute cardiac dysfunction/rubs/new murmurs Echocardiogram without focal abnormalities, abnormal amounts of pericardial fluid; left ventricular systolic function within normal limits Coxsackie serologies pending Out of concern that this may represent underlying myocarditislikely viral in origincardiology consulted for further recommendations Elevated troponin may be secondary to demand ischemia from underlying febrile illness versus very mild myocarditis Discontinue colchicine and ASA given no findings of pericarditis Continuous cardiac monitoring with telemetry Respiratory - Symptomatically, patient not reporting any lower respiratory symptoms over the past 2 weeks in the setting of this ongoing febrile illness Chest x-ray without focal abnormalities or airspace opacities COVID-19 swab negative in the ER Continued to be asymptomatic through hospital course GI - Transaminitis Initially, AST predominant transaminitis appreciated on admission in the 600- 700 range; this is subsequently improved with IV fluids to AST 437/ALT 504 on day 1 of admission Mild improvement on 10/18 --> ALT 500 / AST 388 T bili initially mildly elevated to 1.6, D bili 0.8 --> TBili 2.4 ALP 192 --> downtrended --> back to 192 INR within normal limits No symptoms of abdominal pain that might be consistent with an obstructive process Liver ultrasound was largely unremarkable for any acute or chronic processes Hepatitis panels for B, C negative - Total IgG of Hepatitis A was positive -- d/t childhood vaccination? - Hepatitis A IgM subsequently ordered for further characterization -- pending on d/c CPK within normal limits Do suspect that this represents a part of acute viral syndrome Continue infectious, rheumatologic work-up as below Continue IV fluids - Recommend CMP q72h until resolution of transaminitis Frequent bowel movements for many years Per patient, has multiple (5-10) small, formed bowel movements a day without cramping Notes that she has been worked up for this extensively by GI at the [facility] She reports being tested for celiac disease multiple times, all of which is come back negative Noted; do not believe that this has a contribution to her acute illness at present. CT abdomen pelvis did show a large stool burdendo wonder if there may be an element of hypomotility and constipation that may be contributing to this We will add on MiraLAX daily Hematochezia -- not observed while hospitalized Patient reports several month history of intermittently mixed blood in her stool She is also being worked up by her outside GI doctors for this too; there have been no significant changes over the course of her acute illness Evidence of intermittent, mild anemia on her daily labs; unsure if this may be related or not given no access to previous files but not significant at present Briefly considered was the possibility of new onset inflammatory bowel disease; however, no acute changes from a symptomatic perspective, this seems less likely. Continued outpatient work-up will be required. At this time, low suspicion that frequent bowel movements/hematochezia are related to acute illness, especially considering how long they have been going on Continue outpatient work-up -- patient notes they are set-up for colonoscopy with their primary GI team RENAL/LYTES - No evidence of renal involvement at this time; BMP demonstrating stable function. - Initial Concern for Retained Foreign Body -- low concern for TSS Symptomatically, patient is not complaining of any acute issues from a gynecologic standpoint Patient did initially report concerns of possible retained foreign body in the vagina, however on clarification of this point, this seems quite unlikely; patient was also seen at urgent care day after this would have occurred (~2 weeks ago), with no significant findings there either. She denies any persistent or copious discharge/irritation. Exam in ER benign. Toxic shock syndrome seems quite unlikely given her clinical appearance, labs, and otherwise lack of local symptoms. Pelvic exam in the ER was not significant for any acute findings Abnormal Urinalysis without Symptoms On admission, patient was noted to have trace ketones, blood, nitrites, leuk esterase on her UAhowever, in the absence of any urinary symptoms, do not suspect that this represents an acute UTI. Discontinue antibiotics. Abnormal colored urine Secondary to bilirubinuria and likely a component of dehydration Trace red blood cells in the urine Other - ID work-up as below re: STIs (neg) ENDO - No concerns at this time HEME - Mild leukopenia -- resolved Upon her arrival in the ER, patient was noted to have a mild leukopenia to 3.7- 4 --> resolved during stay, discharge WBC 5.6 Peripheral smear does not demonstrate any dysplastic cells. Granulocytes predominate and appear mature. No blasts. Red blood cells morphologically unremarkable. No intracytoplasmic inclusions. Diminished amount of leukocytes. In the setting of 2 weeks of fever, sore throat, transaminitis, mildly elevated troponins -- do suspect that this may have been transient, mild myelosuppression 2/2 viral illness Anaplasmosis not appreciable on smear. PCR negative. HIV negative No evidence of diffuse lymphadenopathy on exam/other findings at present that would be concerning for malignancy ID - Fever for 2 weeks Patient reports intermittent fever ongoing for the last 2 weeks, most noticeable at night however was taking Tylenol during the day Only other symptoms include a mild sore throat approximately a week and 1/2 to 2 weeks ago which subsequently resolved on its own within a day Patient denying any sort of rashes or joint pains that developed over this time, no respiratory illness, mild congestion that is gotten better on its own Etiology of this ongoing fever still somewhat unclear at this time, but work-up that is ongoing narrows the diagnosis Blood cultures demonstrating [id number] (at d/c) -- low inflammatory markers, absence of left shift, and without possible origin, low suspicion that this represents an acute and ongoing bacteremia Certainly her sore throat around the start of the fevers is interesting; her antistreptolysin titers came back just mildly elevated; however this is in the context of somebody who had multiple strep throats over the preceding years. Low suspicion that this represents an acute and ongoing rheumatic fever given her constellation of symptoms and laboratory findings. Echocardiogram without focal abnormalities, troponin just mildly elevated As above, HIV negative [place] screen negative, CMV pending Anaplasmosis PCR and smear negative MARYBEL, rheumatoid factor pendingrheumatologic etiologies are considered, await the screens and other work-up for further possible investigation Hepatitis A, B, C labs as above -- Hep A IgM pending Lyme pending Coxsackie, CMV pending Urinalysis notable for leuk esterase and nitrites, however in the absence of any urinary symptoms, low suspicion for UTIespecially over the timeframe the patient reports her fever Patient's travel history as noted, as well as the fact that no malarial prophylaxis was utilized. However, initial smear was negative. Second smear pending. Given lack of other symptoms, this does seem unlikelyespecially in the time frame it has been since she traveled in his no acute illness reported while she was traveling. All this considered, suspect that the cause of this fever, as well as transaminitis, and mildly elevated troponin, are likely secondary to an acute viral illness/syndrome If there seems to be a plateau in improvement while she is here, symptomatically and her labs, can consider starting empiric doxycycline for possible tickborne illnessessuch as anaplasmosis (mild leukopenia is noted, however there is no thrombocytopenia)given possibility for false negatives on testing and clinical correlation. INTEGUMENTARY - No history of rashes throughout this current illness. Continue to monitor. (2) Urinary tract infection: (3) Myocarditis: (4) Fever: (5) Elevated transaminase level: (6) Elevated troponin: Total Time Total Time Spent Total Time Spent (In Minutes): <30 minutes Discharge Plan Discharge Items Patient Disposition: Home - Self-Care Reason For Visit: MYOPERICARDITIS Discharge Diagnosis: suspect - acute viral illness transaminitis (elevated liver enzymes) mild elevation in troponin (heart enzyme) Activity: Resume your previous activity Non-emergency contact: Primary Care Provider and Edi Manager Call non-emergency contact if: your symptoms worsen and your temperature is above 101.5 Follow-up/Referrals: PCPNETO [Primary Care Provider] - Diet: Regular Addtl Attending Provider Instructions: You were seen at [facility] for evaluation of ongoing fever fo r 2 weeks. During your stay here, you underwent several studies to determine the cause of your fevers. In the process, you were found to have elevated liver enzymes which subsequently downtrended; further, the ultrasound of your liver did not show any worrisome findings. You were also initially noted to have a very mild elevation in one of your heart enzymes -- after consulting with cardiology, getting an echocardiogram (ultrasound), and observing a downtrend in this lab level, we suspect that this was likely due to either very mild (and resolving) inflammation of the heart OR stress due to ongoing illness. Thankfully, the bacterial and viral work-ups that we do have tests for all returned negative. However, given your constellation of symptoms as well as laboratory findings, we do believe that the most likely explanation of your fevers/labs is an acute viral syndrome. Some tests are still pending upon discharge -- which have been noted on your discharge summary/instructions. We recommend signing up for the patient portal so you have access to all of these labs / notes for viewing by your providers back home. You can also call the hospital at any time to have your records transferred. If any of these labs come back positive that warrant a change in treatment / management, you will be contacted. Please follow-up with your PCP within 1 week to review this visit. In the interim, you have made great improvements; we do recommend that you obtain liver function labs every 72 hours until resolution has occurred. If, for any reason, your symptoms are persisting without resolution OR you are not noting any new improvement, we do recommend starting on doxycycline (an antibiotic) to cover for possible tick-borne illnesses that might have appeared as "false positives" on the lab tests. If you experience significant worsening in your symptoms, new chest pain, shortness of breath, significant nausea/vomiting, new abdominal pain, or any other worrisome symptoms, please seek medical attention immediately - either by calling your PCP or, if emergent, by calling 911/going to the ER. It has been a pleasure caring for you during your stay. We wish you all the best throughout your recovery. Pending Studies at Discharge: Yes Stand-Alone Forms: My [facility] e[employer] Car Rental, Smoking Cessation Medications and DC Order Prescriptions: Continued acetaminophen [Tylenol] 325 mg Tablet 650 mg PO QID PRN (Reason: Pain) RF: 0 ascorbic acid (vitamin C) [Vitamin C] 500 mg Tablet 500 mg PO QAM RF: 0 Probiotic 3 billion cell Capsule 3,000 mmu cells PO QAM RF: 0 Discharge Orders: Discharge Order (Routine); Ordered 10/18/20 Ordered By: Zack Acosta Admission Data Admit Date/Time: 10/16/20 22:32 Attending Provider: Zack Vega Admit Provider: Houston Andino Primary Care Provider: PCP,NO Other Providers: Cordell Stiles ; Jalen Reyes Other Interventions: Discharge Summary Assessment (RN) Last Done: 10/18/20 11:47 Supervising Physician Co-Signing Physician Notes I personally examined the patient and verified all sanders points of history and exam, discussed case, and agree with decision making with Dr Acosta. Generally feeling better. Very much would like to go home. Willing to have lab follow-up until normalization. Feels safe with the plan. Expresses good understanding. Vitals noted, in general she is awake and alert pleasant no distress. HEENT normocephalic atraumatic mucous membranes moist. Breathing unlabored no accessory muscle use good effort. Skin shows no rashes no pallor or icterus. Labs and diagnostics noted. Febrile illness -Myalgias, leukopenia and anemia, transaminitis, mild troponin elevationmost likely this is a viral syndrome, particularly given the diffuse organ system involvement, and the long meandering course of illness without overt sepsis or focal signs or symptoms of infection. Her LFTs are slowly trending down, her troponin appears to have peaked at a very low level, and overall she is feeling a bit better. as a late finding, hep A antibody is positive, IgM pending --- certainly this could explain it. other less specific viral infections could as well. Suspect ASO titer relates to prior episodes of strep. given endemic area, if improvement were to plateau or if she were to worsen again, then could consider empiric treatment with doxy for tick borne illness. Otherwise as above Resident Activity Tracking Resident Involvement: Resident Care Provided Care Provided: Adult Hospital Medicine
[2020-10-18 12:25] LABS: Lyme Ab IgG w/WB Rflx Negative (Negative); Lyme Ab IgM w/WB Rflx Negative (Negative)
--- NOTE | 2020-10-18 19:05 | Billing Data ---
Date of Service October 18, 2020 Coding Level of Care Code D/C Day Management <30 mins
--- NOTE | 2020-10-18 22:09 | Billing Data ---
Date of Service October 18, 2020 Coding Level of Care Code 97442 Initial Inpt Care Lvl 3
[2020-10-20 05:06] LABS: Marijuana Quant, GCMS Urine 143 ng/mL (<5)
[2020-10-20 16:49] LABS: Anti Nuclear Antibody Screen POSITIVE (NEGATIVE); CMV IgG Antibody >10.00 U/mL; CMV IgM Antibody <30.00 AU/mL; Coxsackie B1 1:16 (<1:8); Coxsackie B2 <1:8 (<1:8); Coxsackie B4 <1:8 (<1:8); Coxsackie B5 <1:8 (<1:8); Rheumatoid Factor <14 IU/mL (<14)
--- NOTE | 2020-10-27 11:45 | Coding Query ---
CODING QUERY To promote full compliance with coding requirements relating to patient care, provider participation is requested in all cases of can dragger uncertainty. Please assist us with the question(s) below: Coding Question(s): Per 10/17 Progress Note documentation, "elevated troponin may be secondary to demand ischemia from underlying febrile illness vers very mild myocarditis." Progress note also states Acute Myocarditis at the bottom of it. This does not make Discharge Summary. Please clarify below: (x ) Acute Myocarditis ( ) Myocarditis, NOS ( ) Other Please Explain: Thank you Mehrdad Orellana Principal Diagnosis: "that condition established after study, to be chiefly responsible for occasioning the admission of the patient to the hospital for care." Co-Existing Principal Diagnosis: "when two or more diagnoses equally meet the criteria for principal diagnosis as determined by the circumstances of admission, diagnostic work up, and/or therapy provided, and the Alphabetic Index, Tabular List, or another coding guideline does not provide sequencing direction, any one of the diagnoses may be sequenced first." "When the physician has documented what appears to be a current diagnosis in the body of the record, but has not included the diagnosis in the final diagnostic statement, the physician should be asked whether the diagnosis should be added." (Source Coding Clinic 2 QTR90. p3-4) JOSE
== END 2020-10-18 12:32 | disposition home or self-care (01) | DRG 865 ==
LOC: ED 19:17 → SUATTDRO 10-17 → 2N 10-17